=== PATIENT | female | born 1995 | race Caucasian/White ===

== ENCOUNTER 2023-03-27 08:44 | Outpatient (OUT) | payer BC, SELFPAY ==
[2023-03-27 12:37] LABS: SARS-CoV-2 Ag NEGATIVE (NEGATIVE)
[2023-03-27 12:38] LABS: Influenza Virus A Antigen Negative; Influenza Virus B Antigen Negative; Internal Control Within Normal Limits
[2023-03-28 15:04] LABS: SARS-CoV-2 NAA NOT DETECTED (NOT DETECTE)
== END 2023-03-27 08:45 | disposition home or self-care (01) ==
LOC: LAB 03-28 08:45
PROVIDERS: PCP Nurse Practitioner; Visit Provider Nurse Practitioner
DX: Z20.822 Contact with and (suspected) exposure to COVID-19 (principal); Z11.8 Encounter for screening for other infectious and parasitic diseases
CPT/HCPCS: 87635; 87804; 87811

== ENCOUNTER 2023-12-04 17:18 | Emergency (ER) | payer BC, SELFPAY ==
[2023-12-04 17:22] VITALS: BP 139/90; PULSE 90; TEMP 37.1; O2SAT 99; BMI 26.9
--- OUTSIDE RECORDS SUMMARY | 2023-12-04 17:44 | XMS_ITS | CCD ---
Author Organization [facility] Care Team Providers Care Biscuit Machine Operator Name Role Phone Aracely Slater Primary Care Provider THOR ROWAN Referring Unavailable ARACELY SLATER Primary Care Unavailable AICHHOLNeetu, TECHNICAL PROFESSIONAL ARACELY Admitting Unavailable AICHHOLZ, TECHNICAL PROFESSIONAL ARACELY Attending Unavailable AICHHOLZ, TECHNICAL PROFESSIONAL ARACELY Primary Care Unavailable AICHHOLZ, TECHNICAL PROFESSIONAL ARACELY Consulting Unavailable AICHHOLZ, TECHNICAL PROFESSIONAL ARACELY Admitting Unavailable AICHHOLZ, TECHNICAL PROFESSIONAL ARACELY Attending Unavailable AICHHOLZ, TECHNICAL PROFESSIONAL ARACELY Primary Care Unavailable AICHHOLZ, TECHNICAL PROFESSIONAL ARACELY Consulting Unavailable Unavailable Primary Care Provider Unavailabl e Allergies Allergy Classification Reported Allergen(s) Allergy Type Date of Onset Reaction(s) Facility Opioid Agonists (1 source) HYDROmorphone Drug Allergy 0 Nausea And Vomiting [facility] Medications Current Medications Medication Drug Class(es) Dates Sig (Normalized) Sig (Original) cetirizine hydrochloride 10 mg oral tablet (1 source) Histamine-1 Receptor Antagonist cetirizine (ZYRTEC) 10 MG tablet Take 10 mg by mouth as needed for Allergies 0 Active dextromethorphan hydrobromide 15 mg / guaiFENesin 400 mg / pseudoephedrine hydrochloride 60 mg oral tablet (1 source) alpha-Adrenergic Agonist, Uncompetitive G-iqepuu-Q-aspartat e Receptor Antagonist, Sigma-1 Agonist Start: 09-13-2023 take 4 tablets by mouth every twenty-four hours Pseudoephedrine-D m-Guaifenesin (Capmist Dm) 60-15-400 mg tablet Active 1 TAB PO EVERY 4-6 HOURS September 13, 2023 12:00am do not exceed 4 doses per 24 hrs gabapentin 300 mg oral capsule (1 source) Anti-epileptic Agent take 1 capsule by mouth once daily gabapentin (NEURONTIN) 300 MG capsule Take 300 mg by mouth nightly. 0 Active loratadine 10 mg oral tablet (1 source) take 1 tablet by mouth once daily loratadine (CLARITIN) 10 MG tablet Take 10 mg by mouth daily 0 Active tiZANidine 4 mg oral tablet (1 source) Central alpha-2 Adrenergic Agonist take 1 tablet by mouth every six hours as needed tiZANidine (ZANAFLEX) 4 MG tablet Take 4 mg by mouth every 6 hours as needed 0 Active valACYclovir 1000 mg oral tablet (1 source) Herpesvirus Nucleoside Analog DNA Polymerase Inhibitor, Herpes Simplex Virus Nucleoside Analog DNA Polymerase Inhibitor, Herpes Zoster Virus Nucleoside Analog DNA Polymerase Inhibitor Start: 06-13-2023 End: 06-14-2023 take 2 tablets by mouth in the morning valACYclovir (Valtrex) 1 g tablet Indications: Cold sore Take 2 tablets (2,000 mg) by mouth in the morning and 2 tablets (2,000 mg) before bedtime. Do all this for 1 day. 4 tablet 2 06/13/2023 06/14/2023 Active Completed/Discontinued Medications Medication Drug Class(es) Dates Sig (Normalized) Sig (Original) acetaZOLAMIDE 250 mg oral tablet (1 source) Carbonic Anhydrase Inhibitor Start: 12-22-2019 take 1 tablet by mouth twice daily acetaZOLAMIDE (DIAMOX) 250 mg tablet Take 1 tablet by mouth twice daily. 60 tablet 1 12/22/2019 Active Comment on above: Take 1 tablet by guillermo th twice daily. cephalexin 500 mg oral capsule (1 source) Cephalosporin Antibacterial take 1 capsule by mouth once daily cephALEXin (KEFLEX) 500 mg capsule Take 500 mg by mouth once daily. 0 Active Comment on above: Take 500 mg by mouth once daily. ketorolac tromethamine 10 mg oral tablet (1 source) Nonsteroidal Anti-inflammatory Drug, Cyclooxygenase Inhibitor take 1 tablet by mouth every eight hours as needed ketorolac (TORADOL) 10 mg tablet Take 10 mg by mouth every 8 hours as needed. 0 Active Comment on above: Take 10 mg by mouth every 8 hours as needed. ondansetron 4 mg disintegrating oral tablet (1 source) Serotonin-3 Receptor Antagonist take 1 tablet by mouth every eight hours as needed ondansetron orally disintegrating (ZOFRAN ODT) 4 mg disintegrating tablet Take 4 mg by mouth every 8 hours as needed. 0 Active Comment on above: Take 4 mg by mouth e very 8 hours as needed. 24 hr oxybutynin chloride 10 mg extended release oral tablet (1 source) Cholinergic Muscarinic Antagonist take 1 tablet by mouth once daily oxybutynin ER (DITROPAN XL) 10 mg 24 hr tablet Take 10 mg by mouth once daily. 0 Active Comment on above: Take 10 mg by mouth once daily. Problems Active Problems Problem Classification Problem Date Documented Da te Episodic/Chronic Other nervous system disorders (1 source) Benign intracranial hypertension; Translations: [Benign intracranial hypertension] Chronic Other nervous system disorders (2 sources) Chiari malformation type I; Translations: [Compression of brain] Chronic Other upper respiratory infections (1 source) Acute pharyngitis, unspecified; Translations: [Acute pharyngitis] 09-13-2023 Episodic Unclassified (3 sources) CONTACT W/AND (SUSP) EXPOS COVID-19; Translations: [CONTACT W/AND (SUSP) EXPOS COVID-19] Onset: 10-07-2021 Unclassified (1 source) Chiari malformation; Translations: [Chiari malformation] 09-13-2023 Viral infection (2 sources) Herpes labialis; Translations: [Herpesviral vesicular dermatitis] Onset: 06-13-2023 06-13-2023 Episodic Viral infection (1 source) COVID-19; Translations: [COVID-19] Onset: 04-15-2021 Past or Other Problems Problem Classification Problem Date Documented Da te Episodic/Chronic Unclassified (1 source) CONTACT W/AND (SUSP) EXPOS COVID-19; Translations: [CONTACT W/AND (SUSP) EXPOS COVID-19] Onset: 10-04-2021 Results Test Name Value Interpretation Reference Range Facility No Panel InformationOrdered By: Kelley Jane on 09-13-2023 Quick Strep (POC) [facility] Covid-19 PCR (CVDTBH)on SARS-CoV-2 (COVID-19) RNA [place]+probe Ql (Unsp spec) Not detected Normal NOT DETECTED [facility] Comment on above: Result Comment: This test is not yet approved or cleared by the [place] FDA. When there are no FDA-approved or cleared tests available, and other criteria are met, FDA can make tests available under an emergency access mechanism called an Emergency Use Authorization (EUA). The EUA for this test is supported by the [place] of Health and Human Service's (HHS's) declaration that circumstances exist to justify the emergency use of in vitro diagnostics for the detection and/or diagnosis of the virus that causes COVID-19. This EUA will remain in effect (meaning this test can be used) for the duration of the COVID-19 declaration justifying emergency of IVDs, unless it is terminated or revoked by FDA (after which the test may no longer be used). When diagnostic testing is negative, the possibility of a false negative should be considered in the context of a patient's recent exposures and the presence of clinical signs and symptoms consistent with SARS-CoV-2. Performed By: #### C VDTB #### [facility] [address] [place] [address] Dr. Price Gould Covid-19 PCR ([facility])on 03-29 SARS-CoV-2 (COVID-19) RNA WASHINGTON+probe Ql (Unsp spec) Detected Critically abnormal NOT DETECTED [facility] Comment on above: Result Comment: This test is not yet approved or cleared by the [place] FDA. When there are no FDA-approved or cleared tests available, and other criteria are met, FDA can make tests available under an emergency access mechanism called an Emergency Use Authorization (EUA). The EUA for this test is supported by the [place] of Health and Human Service's (HHS's) declaration that circumstances exist to justify the emergency use of in vitro diagnostics for the detection and/or diagnosis of the virus that causes COVID-19. This EUA will remain in effect (meaning this test can be used) for the duration of the COVID-19 declaration justifying emergency of IVDs, unless it is terminated or revoked by FDA (after which the test may no longer be used). Performed By: #### C VDTB #### [facility] [address] [place] [address] Dr. Price Gould MRI CSF FLOW STUDYon 021 MRI CSF FLOW STUDY EXAMINATION: MRI CSF flow study 12/07/2020 1:15 pm TECHNIQUE: Sagittal and axial T2 flow COMPARISON: None. HISTORY: ORDERING SYSTEM PROVIDED HISTORY: Chiari I malformation (HCC) TECHNOLOGIST PROVIDED HISTORY: evaluate flow; +chiari malformation Is the patient ?->No Reason for Exam: Pt c/o headaches, vertigo, ringing in ears, x 2 years, heaviness in back of head, mother with Chiari Acuity: Chronic Type of Exam: Ongoing FINDINGS: CSF flow images were obtained in the axial and sagittal planes. There is normal to and fro CSF flow through the foramen of magnum, both ventrally and dorsally. IMPRESSION: Normal CSF flow. Interpreted by: Jaime Pineda MD Signed by: Jaime Pineda MD 12/07/20 Final result Normal [facility] MRI CSF FLOW STUDYOrdered By : Thor Rowan on 12-07-[address] [facility] Work Phone: EXAMINATION: MRI CSF flow study 12/07/2020 1:15 pm TECHNIQUE: Sagittal and axial T2 flow COMPARISON: None. HISTORY: ORDERING SYSTEM PROVIDED HISTORY: Chiari I malformation ([facility]) TECHNOLOGIST PROVIDED HISTORY: evaluate flow; +chiari malformation Is the patient ?->No Reason for Exam: Pt c/o headaches, vertigo, ringing in ears, x 2 years, heaviness in back of head, mother with Chiari Acuity: Chronic Type of Exam: Ongoing FINDINGS: CSF flow images were obtained in the axial and sagittal planes. There is normal to and fro CSF flow through the foramen of magnum, both ventrally and dorsally. [employer] Work Phone: Earl, pn Incoming Radiant Results From [employer] - 12/07/2020 5:00 PM EDT EXAMINATION: MRI CSF flow study 12/07/2020 1:15 pm TECHNIQUE: Sagittal and axial T2 flow COMPARISON: None. HISTORY: ORDERING SYSTEM PROVIDED HISTORY: Chiari I malformation (HCC) TECHNOLOGIST PROVIDED HISTORY: evaluate flow; +chiari malformation Is the patient ?->No Reason for Exam: Pt c/o headaches, vertigo, ringing in ears, x 2 years, heaviness in back of head, mother with Chiari Acuity: Chronic Type of Exam: Ongoing FINDINGS: CSF flow images were obtained in the axial and sagittal planes. There is normal to and fro CSF flow through the foramen of magnum, both ventrally and dorsally. IMPRESSION: Normal CSF flow. [employer] Work Phone: [employer] Work Phone: Provider Letteron 06-23-2020 Provider Letter June 23, 2020 IVETTE LOPES [address] [id number] IVETTE LOPES 1995 Dear Ivette , We have been trying to reach you since June 06 with no success. You have an appointment with Dr. Patiño on July 15 @ 10:15am which will need to be rescheduled since he will be out of the office that day. Please contact the office at the number listed below to get this appointment rescheduled at your earliest convenience. Thank you for your prompt attention to this matter. Call [phone] and choose option 1. Sincerely, Dr Neel Patiño MD [facility] [address] [place] [address] [facility] [place] [place] [address] [facility] RAD - CT Reporton 02-01-2020 RAD - CT Report [id number] 0CD:127 [facility] Ambulatory Clinical Summaryo n 01-13-2020 Ambulatory Clinical Summary {[id number] [facility] Consent for Procedure/Surger yon 01-13-2020 Consent for Procedure/Surgery [id number] 0CD:127 [facility] Patient Educationon 01-13-20 20 Patient Education Cystoscopy Care After Refer to this sheet in the next few weeks. These instructions provide you with information on caring for yourself after your procedure. Your caregiver may also give you more specific instructions. Your treatment has been planned according to current medical practices, but problems sometimes occur. Call your caregiver if you have any problems or questions after your procedure. HOME CARE INSTRUCTIONS Things you can do to ease any discomfort after your procedure include: ? Drinking enough water and fluids to keep your urine clear or pale yellow. ? Taking a warm bath to relieve any burning feelings. SEEK IMMEDIATE MEDICAL CARE IF: ? You have an increase in blood in your urine. ? You notice blood clots in your urine. ? You have difficulty passing urine. ? You have the chills. ? You have abdominal pain. ? You have a fever or persistent symptoms for more than 2?3 days. ? You have a fever and your symptoms suddenly get worse. MAKE SURE YOU: ? Understand these instructions. ? Will watch your condition. ? Will get help right away if you are not doing well or get worse. Document Released: 11/02/2005 Document Revised: 01/07/2013 Document Reviewed: 10/06/2012 ExitCare? Patient Information ?2013 [employer]. [facility] Urology Office/Clinic Noteon 01-13-2020 Urology Office/Clinic Note Chief Complaint Patient is here for Cysto, right stent removal. HPI Staff Patient is here for Cysto, right stent removal. ABX started. Scope #1. History of Present Illness I have reviewed and verified the staff HPI to be accurate for this encounter. Review of Systems PHQ Score Initial Depression Screen Score: 0 Physical Exam Vitals & Measurements HR: 97(Peripheral) RR: 16 BP: 119/70 HT: 160 cm HT: 160.0 cm WT: 65.1 kg WT: 65.1 kg BMI: 25.43 Procedure Operative Information Anesthesia Type: Local Procedure: Local Cystoscopy with Stent Removal Complications: None Surgical risks, benefits, details of the procedure have been explained to the patient. Full informed consent has been obtained. Intraoperative Information Prepped: Patient is placed in modified dorso/lithotomy position. The patient was prepped with the Betadine solution. Anesthesia: 2% Xylocaine Jelly per urethra. Procedure: Cystoscopy and right stent removal. The flexible Cystoscope was passed in retrograde fashion into the bladder without difficulty. The bladder was viewed in entirety and found to be without tumors or stones. Mild inflammation was seen surrounding the orifice with the stent seen protruding from it. The stent was then grasped and removed in its entirety. Specimens Removed: None Postoperative Information The patient tolerated the procedure well and was subsequently discharged home. Assessment/Plan 1. Foreign body of bladder (T19.1XXA: Foreign body in bladder, initial encounter) Follow-up With When Contact Information Haroon Jolley MD, Neel Welsh In 6 months [address], [place] [address]- Additional Instructions: w/kub Patient Education Cystoscopy, Care After I, Mendez Bernal, personally scribed for Dr. Gonzales on 01/13/2020 08:29:21. . Documentation recorded by the scribe, Mendez Bernal, accurately reflects the services(s) I performed and decisions made by me. Authenticated by Dr. Gonzales on 01/13/2020 08:34:25. Problem List/Past Medical History Ongoing BMI 26.0-26.9,adult History of Chiari malformation Kidney stone Historical No qualifying data Procedure/Surgical History Cystoscopy (12/16/2019), Adenoidectomy, Lumbar puncture, Tonsillectomy. Medications Cipro, Oral, q12hr, Not taking Flomax 0.4 mg Cap, 0.4 mg= 1 cap(s), Oral, Daily, 1 refills, Not taking ketorolac 10 mg Tab, 10 mg= 1 tab(s), Oral, q4hr, PRN, Not taking Levsin 0.125 mg oral tablet, 0.125 mg= 1 tab(s), Oral, q6hr, 1 refills Percocet 5 mg-325 mg oral tablet, Oral, q6hr, Not taking Zofran 4 mg Tab, Oral, q8hr, Not taking Zyrtec-D, Oral, BID Allergies No Known Allergies Social History Alcohol - Denies Alcohol Use, 01/13/2020 Substance Abuse - Denies Substance Abuse, 01/13/2020 Tobacco - No Risk, 01/13/2020 Never (less than 100 in lifetime) Tobacco Use:. Never Smokeless Tobacco Use:., 12/11/2019 Family History Breast: Grandparent. Colon cancer: Grandparent. Hypertension: Sister. Migraine: Sister. Normal [facility] Comment on above: Result Comment: Elec tronically Signed By: EUGENE RAMESH, Frank Ortega\.br\Date and Time Signed: 01/13/20 08:34 EDT\.br\Electronically Co-Signed By: Mendez Bernal MA.dimple\Date and Time Co-Signed: 01/13/20 08:29 EDT Provider Letter FTon 01-10 Provider Letter [facility] January 11, 2020 IVETTE LOPES [address] [address] [place] IVETTE Prabhakar 1995 To Whom It May Concern, Please excuse above patient from work. Date of Illness: From: 01/11/2020 To: 01/13/2020 May Return to Work On: 01/14/2020 Restrictions: Patient may return to work 01/14/20 without restrictions. Comments: Patient is having surgical procedure done 01/13/20 Sincerely, Frank Gonzales M.D., F.A.C.S. [facility] ALLIED HEALTHon 01-07-2020 [facility] HNO ID: [id number] Author: Arthur Bell (Ct) Service: ? Author Type: Bat Person Type: [facility] Filed: 01/07/2020 2:29 PM Note Text: Radiology Service Progress Note PATIENT NAME: Ivette Lopes DATE OF SERVICE: January 07, 2020 TIME: 2:29 PM PATIENT IDENTITY VERIFICATION COMPLETED USING TWO (2) IDENTIFIERS: Name and Date of confirmed by patient verbally. FALL SCREENING: Has the patient had 2 falls in the last year or 1 fall with injury or currently using an Ambulatory Assistive Device (Walker, Cane, Wheelchair, Crutches, etc.)? No PATIENT GENDER DATA: Female. status: : No status: NO. PATIENT RELEVANT IMPLANT DATA REVIEWED: Not Applicable RADIOLOGY DEPARTMENT: CT; Exam(s) Completed: Temporal Bones PERIPHERAL IV DATA: Not applicable SIGNED BY: BIMAL Bell January 07, 2020 2:29 PM [facility] CT TEMP BONES WO IVCONon CT TEMP BONES WO IVCON * * *Final Report * * * DATE OF EXAM: Jan 07 2020 2:31PM [facility] 0512 - CT TEMP BONES WO IVCON / PROCEDURE REASON: rule out semicircular canal dehiscence * * * * Physician Interpretation * * * * EXAMINATION: CT TEMP BONES WO IVCON CLINICAL HISTORY: Concern for semicircular canal dehiscence. Disequilibrium. TECHNIQUE: Spiral 0.6 mm axial scans through the temporal bones contrast in high resolution bony algorithm. Coronal planar reconstructions provided. MQ: [id number] Dose-Length Product (DLP): 338 mGy*cm. CT Dose Reduction Employed: Automated exposure control (AEC) COMPARISON: None. RESULT: RIGHT: External Auditory Canal/Superficial Soft Tissues: EAC is patent. Overlying superficial soft tissues and the tissues of the visualized inferotemporal fossa are within normal limits. Mastoid Air Cells and Middle Ear Cavities: Mastoid air cells and middle ear cavities are clear. Ossicles: Ossicles are normally aligned and intact. Inner Ear Structures: There is dehiscence of the bony covering overlying the superior semicircular canal (series 7 image 160). Inner ear structures are within normal limits. No evidence of dysmorphism, bony destruction or dehiscence. Internal Auditory Canals: IAC is within normal limits of caliber and configuration. Skull Base: No evidence of bony destruction. LEFT: External Auditory Canal/Superficial Soft Tissues: EAC is patent. Overlying superficial soft tissues and the tissues of the visualized inferotemporal fossa are within normal limits. Mastoid Air Cells and Middle Ear Cavities: Mastoid air cells and middle ear cavities are clear. Ossicles: Ossicles are normally aligned and intact. Inner Ear Structures: There is marked thinning with probable dehiscence of the left superior semicircular canal (series 6 image 57). Inner ear structures are otherwise within normal limits. No evidence of dysmorphism, bony destruction or dehiscence. Internal Auditory Canals: IAC is within normal limits of caliber and configuration. Skull Base: No evidence of bony destruction. Physiotherapy Aide (topogram) images: No additional findings. There are small mucous retention cysts in the right maxillary antrum. 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 Otherwise normal appearance of the temporal bones. Mud Analysis Operator: PSCB Transcribe Date/Time: Jan 07 2020 2:34P Dictated by : CHRISTIANO CASTILLO DO This examination was interpreted and the report reviewed and electronically signed by: CHRISTIANO CASTILLO DO on Jan 07 2020 2:44PM EST [id number] Normal [facility] Basic Metabolic Panlon 01-03 Anion gap [Moles/Vol] 11 mmol/L Normal 9-18 [facility] Comment on above: Performed By: #### B MP ####[place] [phone] Calcium [Mass/Vol] 8.7 mg/dL Normal 8.5-10.5 [facility] Comment on above: Performed By: #### B MP ####[place] [phone] Chloride [Moles/Vol] 110 mmol/L Normal 98-110 [facility] Comment on above: Performed By: #### B MP ####[place] [phone] CO2 [Moles/Vol] 17 mmol/L Low 23-32 [facility] Comment on above: Performed By: #### B MP ####[place] [phone] Creatinine [Mass/Vol] 0.63 mg/dL Low 0.70-1.40 [facility] Comment on above: Performed By: #### B MP ####[place] [phone] eGFR- Amer. >60 Normal >60 [facility] Comment on above: Performed By: #### B MP ####[place] [phone] GFR/1.73 sq M predicted among non-blacks MDRD (S/P/Bld) [Vol rate/Area] mL/min/{1.73_m2} Normal >60 [facility] Comment on above: Performed By: #### B MP ####[place] [phone] Glucose [Mass/Vol] 98 mg/dL Normal 65-100 [facility] Comment on above: Performed By: #### B MP ####[place] [phone] Potassium [Moles/Vol] 3.8 mmol/L Normal 3.5-5.0 [facility] Comment on above: Performed By: #### B MP ####[facility] [place], [place] [phone] Sodium [Moles/Vol] 138 mmol/L Normal 132-148 [facility] Comment on above: Performed By: #### B MP ####[facility] [place], [place] [phone] Urea nitrogen [Mass/Vol] 12 mg/dL Normal 8-25 [facility] Comment on above: Performed By: #### B MP ####[facility] [place], [place] [phone] NURSING PROGon 01-04-2020 NURSING PROG HNO ID: [id number] Author: Rachael RoblesRn) JACQUELIN Harding Service: Nursing Author Type: Registered Nurse Type: Nursing Progress Note Filed: 01/04/2020 11:26 AM Note Text: Nursing Progress Note Patient Name: Ivette Lopes Patient Location: [place] [address] __ Daily Note: Patient resting in bed. Rates frontal and occipital H/A a 6/10 along with nausea. Medicated with both Fioricet and Dramamine. Also stated back spasms that feel shocking and painful. Lung sounds are clear on room air. cardiac monitor technician pattern S/B HR 53. Poor appetite with meals. IVF infusing at 100 ml/hr. Her father is at bedside. S/R up x 2 call light with in reach. Will continue to assess. This note was completed by: Rachael Harding RN [facility] NURSING PROG HNO ID: [id number] Author: Vijaya RoblesRn) JACQUELIN [place] Service: ? Author Type: Registered Nurse Type: Nursing Progress Note Filed: 01/04/2020 1:37 AM Note Text: Nursing Progress Note Patient Name: Ivette Lopes Patient Location: [id number] __ Daily Note:2100 Patient assessed ao-3 follows command c/o head ache and dizziness prn meds given. This note was completed by: Vijaya [place] Rn [facility] CASE MANAGEMon 01-03-2020 CASE MANAGEM HNO ID: [id number] Author: Gladys Cutler (Sw) Service: Care Management Author Type: Telephone Ad Taker Type: Care Mgt Progress Note Filed: 01/03/2020 6:28 PM Note Text: CARE MANAGEMENT PROGRESS NOTE SERVICE DATE: 01/03/2020 SERVICE TIME: 12:37 PM LOS: 2 days Needs Prior to Discharge: To Be Determined Pt continues to have symptoms, though somewhat improved. Plan is to follow up with neurosurgery/Dr. Coronel for repeat MRI in February, as well as for headaches. IRVING/ODETTE to continue to follow. SIGNATURE: ANAHI GAGE PATIENT NAME: Ivette Lopes DATE: January 03, 2020 TIME: 12:37 PM PAGER/CONTACT #: [phone] [facility] CONSULTon 01-03-2020 CONSULT HNO ID: [id number] Author: Lizett Park Service: Neurology General Author Type: Physician Type: Consults Filed: 01/11/2020 1:04 PM Note Text: INITIAL CONSULT - GENERAL NEUROLOGY SERVICE DATE: 01/03/2020 SERVICE TIME: 12:40 PM Current Attending Provider: Krystyna Caldwell Reason for Evaluation: Headaches Subjective HPI: Ms. Ivette Lopes is a 24 year old left handed female with no significant past medical history. History gathered from patient. She reports that she started having headaches for the past year that is getting worse in the past 6 months. These are usually located in the frontal/occipital areas, described as constant pressure to throbbing in character, accompanied by nausea/vomiting/blurre d vision/loss of balance occurring almost daily. She was seeing a neurologist/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ER at [place]. Had CT brain which initially showed some abnormality which led to the MRI which showed a Chiari I malformation hence referred to neurosurgery. She established with neurosurgery on 12/22/2019. Has had multiple evaluations ruling out IIH (ophthalmology evaluation), trial of Diamox. She had lumbar puncture done on 12/28/2019 at [facility]. Since 12/29/2019, noted pressure headache getting worse with accompanying nausea and vomiting. She went to [facility] but was transferred to [place] because of the need for a blood patch. She had a blood patch (20 cc) done on 12/30/2019. She reports that she was significantly better after the blood patch but had to lay flat for an MRI of the C and the T-spine and made her headache recur. She was followed up by the neurosurgery team on 12/31/2019, recommended a second blood patch which she received on 01/01/2020. She reports this blood patch did not help instead triggered more issues, she reportedly had a lot of pain during the procedure, almost blacked out and was not able to feel her legs. Leg sensation have returned but reports to have tingling whenever she moves her leg; also has a lot of pressure sensation in the head - ' feels it will explode', also has pressure in her ears with accompanying nausea vomiting and dizziness. She has tried multiple medications this admission including acetaminophen, Zofran, Decadron, ketorolac, magnesium with minimal benefit. Current Facility-Administered Medications Medication Dose Route Frequency - acetaZOLAMIDE 250 mg tab(s) (DIAMOX) 250 mg ORAL BID - sodium chloride 0.9 % (flush) 3-5 mL (BD POSIFLUSH) 3-5 mL INTRAVENOUS q 12 H - sodium chloride 0.9 % (flush) 2-10 mL (BD POSIFLUSH) 2-10 mL INTRAVENOUS q 12 H - ondansetron 4 mg tab(s) (ZOFRAN) 4 mg ORAL q 6 H PRN Or - ondansetron (PF) 4 mg injection (ZOFRAN) 4 mg INTRAVENOUS q 6 H PRN - acetaminophen 650 mg tab(s) (TYLENOL) 650 mg ORAL q 6 H PRN - acetaminophen 325 mg-caffeine 40 mg-butalbital 50 mg 1 tablet (FIORICET) 1 tablet ORAL q 6 H PRN - dimenhyDRINATE 50 mg tab(s) (DRAMAMINE) 50 mg ORAL q 6 H PRN No past medical history on file. No past surgical history on file. Social History Tobacco Use - Smoking status: Never Smoker - Smokeless tobacco: Never Used Substance Use Topics - Alcohol use: Never Frequency: Never - Drug use: Not on file Comment: not asked FAMILY HISTORY Problem Relation Age of Onset - No Ocular Disease No Family History ALLERGIES Allergen Reactions - Dilaudid [Hydromorp* Intolerance Pt had Nausea /Vomitinglasted 2 days REVIEW OF SYSTEMS: General: no wt. loss/gain, change in appetite, fever, malaise HEENT: no headache, problems with vision, hearing Cardiac: no chest pain, palpitation Respiratory: no shortness of breath, cough, cold GI: no change in bowel habits, abdominal pain : no incontinence, frequency, urgency Musculoskeletal: no joint/muscle pain, no swelling Skin: no rash Endocrine: no cold/hot intolerance, thyroid, diabetes Immunologic: no known immunologic disorders Neurologic/Psychiatric : no other known neurologic or psychiatric problems NEURO: See HPI Objective PHYSICAL EXAM: HEENT: atraumatic, normocephalic Neck: supple, no bruit Heart: (+)S1S2, regular rate and rhythm Extremities: good pulses Neurological: NEUROLOGICAL EXAM: MSE: Awake, alert, oriented x 3, language intact, attention and concentration normal CN: EOMI, no nystagmus, V1-V3 intact, no facial weakness, normal hearing to communication, good elevation of soft palate, tongue midline with good strength, no dysarthria Motor: Gait: Deferred No pronator drift, rapid finger movements are symmetrical Normal tone and bulk No adventitious movements Power: Right Left Neck flexion 5/5 Neck extension 5/5 Trapezius 5/5 5/5 Deltoids 5/5 5/5 Biceps 5/5 5/5 Triceps 5/5 5/5 Finger Flex 5/5 5/5 Hip Flexors 5/5 5/5 Knee Extensors 5/5 5/5 Knee Flexors 5/5 5/5 Ankle DF 5/5 5/5 Ankle PF 5/5 5/5 Toe Flexion 5/5 5/5 Toe Extension 5/5 5/5 Coordination: intact finger to nose and heel to wade Reflexes: B T Br K A Plantars R 2+ 2+ 2+ 2+ 2+ down L 2+ 2+ 2+ 2+ 2+ down Sensory: intact to light touch, no extinction Romberg's deferred LABS/DATA: WBC (k/uL) Date Value 01/02/2020 11.56 12/30/2019 11.25 12/28/2019 8.34 RBC (m/uL) Date Value 01/02/2020 5.06 12/30/2019 4.50 12/28/2019 4.83 Platelet Count (k/uL) Date Value 01/02/2020 287 12/30/2019 231 12/28/2019 262 BUN (mg/dL) Date Value 12/30/2019 5 12/28/2019 10 Creatinine (mg/dL) Date Value 12/30/2019 0.74 12/28/2019 0.87 Lab Results Component Value Date NEUTP 93.1 01/02/2020 ABSNEUT 10.76 01/02/2020 LYMPHP 5.7 01/02/2020 ABSLYMPH 0.66 01/02/2020 ABSMONO 0.13 01/02/2020 EODINP 0.0 01/02/2020 ABSEOSIN <0.03 01/02/2020 BASOP 0.1 01/02/2020 ABSBASO <0.03 01/02/2020 Lab Results Component Value Date PLT 287 01/02/2020 HB 15.0 01/02/2020 HCT 43.1 01/02/2020 CA 8.8 12/30/2019 GLUC 127 12/30/2019 BUN 5 12/30/2019 NA 136 12/30/2019 K 3.6 12/30/2019 CHLOR 109 12/30/2019 CO2 18 12/30/2019 ANION 9 12/30/2019 No results found for: WSR, CRP, IGG No results found for: USCRP No results found for: CHOL No results found for: LDL No results found for: HDL No results found for: TG No results found for: HBA1C RECENT MICROBIOLOGY: Blood Cultures: Urine Cultures/UA: DATA: Diagnostic tests reviewed for today's visit: MRI cervical and thoracic spine -12/30/2019 Normal morphology and signal intensity of the visualized spinal cord. ? Negative for syrinx involving cervical and thoracic spine. ?CSF flow study as discussed. Mild degenerative changes of the cervical spine as discussed. ?No significant spinal canal or significant foraminal stenosis throughout the cervical and lumbar spine. MRI brain -12/24/2019 1. ?Hypoplastic left transverse and sigmoid sinus, likely incidental normal variant. 2. ?Otherwise, no focal significant stenosis or filling defect within visualized venous sinuses. 3. ?Chiari I malformation changes. Impression/Recommendat ions Miss Lopes is a 24 year old female with h/o Chiari I malformation; consulted for post LP headache. Examination reveals an awake, alert patient with no definite focal weakness or sensory loss. She continues to have head pressure. She had blood patch on 12/30/2019 and 01/01/2020. -Conservative measures including laying flat, increasing hydration discussed with her -Consider putting her back on IV fluids; trial of IV caffeine - spoke with pharmacy and his is not in the formulary -If no benefit, may try headache cocktail -Zofran 8 mg IVP -Decadron 8 mg IVP -Depacon 1 g IVPB -Magnesium 2 g IVPB -Toradol 30 mg IVP SIGNATURE: Lizett Park MD PATIENT NAME: Ivette Lopes DATE: January 03, 2020 TIME: 12:40 PM PAGER/CONTACT #: [phone] [facility] NURSING PROGon 01-03-2020 NURSING PROG HNO ID: [id number] Author: Lizett (Rn) JACQUELIN Murdock Service: ? Author Type: Registered Nurse Type: Nursing Progress Note Filed: 01/03/2020 7:02 PM Note Text: Nursing Progress Note Patient Name: Ivette Lopes Patient Location: [place] [address] [facility]- __ Daily Note:AANDOX3. Nsg assessment completed see npr flowsheet. c/o frontal into occipital amaya throbbing in nature 10/06 reports occurred after raising HOB to eat breakfast. reports tingling to ble has resolved but back pain continues /10 sharp needles into back feeling. [place] 5/ x4. no visual changes. medicated with prn tylenol for amaya, refused fioricet stating not effective. plan of care discussed and in agreement. requesting to shower will notify Dr Ray on rounds. call light within reach. 1045 requesting for ears to be examined d/t feels possible ear infection r/t to dizziness, amaya, nausea and recent rt ear pain. Dr Ray notified will be in to see. 1340 Dr Park in to see. 1415 Dr Ray in to see and examine ears. 1800 called to room father at bedside requesting to speak to MD pt c/o increasing dizziness, reports amaya remains 10/06, ringing in ears and pressure change in ears Dr Ray notified and will be in to see. This note was completed by: Lizett Murdock RN [facility] NURSING PROG HNO ID: [id number] Author: Vijaya (Rn) JACQUELIN [place] Service: ? Author Type: Registered Nurse Type: Nursing Progress Note Filed: 01/03/2020 12:50 AM Note Text: Nursing Progress Note Patient Name: Ivette Lopes Patient Location: [id number]/[address] [facility] __ Daily Note:2100 Patient assessed ao-3 follows commands c/o head ache prn pain med given will continue to monitor. This note was completed by: Vijaya Madera Rn [facility] PROGRESSon 01-03-2020 PROGRESS HNO ID: [id number] Author: Nuvia Ray MD Service: General Internal Medicine Author Type: Physician Type: Progress Notes Filed: 01/03/2020 4:47 PM Note Text: Continued to report headache and dizziness which has been impacting her mobility. Seen by neurology, headache cocktail was initiated IV fluids was resume. Concerned if dizziness is also related to inner ear problem. Most of the symptoms appears central however they have been no improvement for the last 48 hours. Will follow recommendation for neurology I will hold Diamox for now and continue hydration Consult ENT Assessment: Post LP headache Dizziness Plan as above [facility] CBC and Differentialon 01-01 Abs Baso <0.03 Normal <0.11 [facility] Comment on above: Performed By: #### C BCDIF ####[place] [phone] Abs [place] 0.13 k/uL Normal <0.87 [facility] Comment on above: Performed By: #### C BCDIF ####[place] [phone] Abs Neut 10.76 k/uL High 1.45-7.50 [facility] Comment on above: Performed By: #### C BCDIF ####[place] [phone] Absolute nRBC <0.01 Normal <0.01 [facility] Comment on above: Performed By: #### C BCDIF ####[place] [phone] Basophils/100 WBC (Bld) 0.1 % Normal [facility] Comment on above: Performed By: #### C BCDIF ####[place] [phone] DTYPE Auto Diff Normal [facility] Comment on above: Performed By: #### C BCDIF ####[place] [phone] Eosinophils (Bld) [#/Vol] 10*3/uL Normal <0.46 [facility] Comment on above: Performed By: #### C BCDIF ####[place] [phone] Eosinophils/100 WBC (Bld) 0.0 % Normal [facility] Comment on above: Performed By: #### C BCDIF ####[place] [phone] Erythrocyte distribution width (RBC) [Ratio] 11.9 % Normal 11.5-15.0 [facility] Comment on above: Performed By: #### C BCDIF ####[place] [phone] Hematocrit (Bld) [Volume fraction] 43.1 % Normal 36.0-46.0 [facility] Comment on above: Performed By: #### C BCDIF ####[place] [phone] Hemoglobin (Bld) [Mass/Vol] 15.0 g/dL Normal 11.5-15.5 [facility] Comment on above: Performed By: #### C BCDIF ####[place] [phone] Lymphocytes (Bld) [#/Vol] 0.66 10*3/uL Low 1.00-4.00 [facility] Comment on above: Performed By: #### C BCDIF ####[place] [phone] Lymphocytes/100 WBC (Bld) 5.7 % Normal [facility] Comment on above: Performed By: #### C BCDIF ####[place] [phone] MCH (RBC) [Entitic mass] 29.6 pG Normal 26.0-34.0 [facility] Comment on above: Performed By: #### C BCDIF ####[place] [phone] MCHC (RBC) [Mass/Vol] 34.8 g/dL Normal 30.5-36.0 [facility] Comment on above: Performed By: #### C BCDIF ####[place] [phone] MCV (RBC) [Entitic vol] 85.2 fL Normal 80.0-100.0 [facility] Comment on above: Performed By: #### C BCDIF ####[place] [phone] Monocytes/100 WBC (Bld) 1.1 % Normal [facility] Comment on above: Performed By: #### C BCDIF ####[address] [phone] Neutrophils/100 WBC (Bld) 93.1 % Normal [facility] Comment on above: Performed By: #### C BCDIF ####[address] [phone] NRBCs 0.0 /100 WBC Normal 0 [facility] Comment on above: Performed By: #### C BCDIF ####[address] [phone] Platelet mean volume (Bld) [Entitic vol] 11.0 fL Normal 9.0-12.7 [facility] Comment on above: Performed By: #### C BCDIF ####[address] [phone] Platelets (Bld) [#/Vol] 287 10*3/uL Normal 150-400 [facility] Comment on above: Performed By: #### C BCDIF ####[address] [phone] RBC (Bld) [#/Vol] 5.06 10*6/uL Normal 3.90-5.20 [facility] Comment on above: Performed By: #### C BCDIF ####[address] [phone] WBC (Bld) [#/Vol] 11.56 10*3/uL High 3.70-11.00 [facility] Comment on above: Performed By: #### C BCDIF ####[address] [phone] Hemoglobin A1con 01-02-2020 HbA1c (Bld) [Mass fraction] 5.1 % Normal 4.3-5.6 [facility] Comment on above: Result Comment: Amer [place] Diabetes Association guidelines indicate that patients with HgbA1c in the range 5.7-6.4% are at increased risk for development of diabetes, and intervention by lifestyle modification may be beneficial. HgbA1c greater or equal to 6.5% is considered diagnostic of diabetes. Performed By: #### H BA1C ####[facility] [place], [place] [phone] HbA1c (Bld) [Mass fraction] 100 mg/dL [facility] Comment on above: Result Comment: eAG: (Estimated average glucose) is a calculated value from HgbA1c and is access service representative of the average blood glucose level in the last 2-3 month period. Performed By: #### H BA1C ####[facility] [place], [place] [phone] NURSING PROGon 01-02-2020 NURSING PROG HNO ID: [id number] Author: Lizett RoblesRn) JACQUELIN Murdock Service: ? Author Type: Registered Nurse Type: Nursing Progress Note Filed: 01/02/2020 6:27 PM Note Text: Nursing Progress Note Patient Name: Ivette Lopes Patient Location: [id number] [facility] __ Daily Note:0815 AANDOX3. Nsg assessment completed see NPR flowsheet. c/o amaya frontal into occiptal area 5/10 aching , c/o mid/low back pain 7/10 describes as sharp, stabbing non radiating, c/o ble tingling. strength 5/5. plan of care discussed and in agreement. call light within reach. 1750 requesting HbgA1 test concerned re glucose levels on blood work, nausea, increased thirst and urination. Dr Ray notified new order for HgbA1c entered into [employer]. This note was completed by: Lizett Murdock, JACQUELIN [facility] NURSING PROG HNO ID: [id number] Author: Nancy RoblesRn) JACQUELIN Eric Service: ? Author Type: Registered Nurse Type: Nursing Progress Note Filed: 01/02/2020 4:46 AM Note Text: Nursing Progress Note Patient Name: Ivette Lopes Patient Location: [id number] __ Daily Note: 2000 pt returned to ROU tearful complaining of nausea at this time. Zofran given to pt. Pt also complaining of continues AMAYA- cold compress applied to pt forehead at this time. Pt stating she almost fainted while receiving blood patch and is not planning to have an MRI tomorrow as she believes it will make her symptoms worse. Pt father called and stated they were angry with the care she has received and plan to come to the hospital to get answers and cause trouble despite known restrictions. 0000 Pt resting and appears comfortable at this time. IV decadron given to pt at this time. 0500 Pt continues to be in stable condition. Pt has no needs at this time. This note was completed by: Nancy Eric RN [facility] PROGRESSon 01-02-2020 PROGRESS HNO ID: [id number] Author: Nuvia Ray MD Service: General Internal Medicine Author Type: Physician Type: Progress Notes Filed: 01/02/2020 1:45 PM Note Text: patient describes her headaches about 6 out of 10. She is having shooting pain towards her lower extremities periodically While her symptoms not as bad as yesterday however she is still concerned about into symptoms She feel worse when she sit up Discussed with patient and her father at bedside, with some improvement compared to yesterday and her concern about any any further testing such as MRI at this time since her symptoms has worsened after the last MRI, she is agreeable to lay flat as much as possible today observe his symptoms continue to improve. Further imaging will be considered for any event flat noticed Assessment: Post LP headache Paresthesia Plan as above Yasmin ray [facility] PROGRESS HNO ID: [id number] Author: Duncan Combs (Pa) Service: Neurosurgery Author Type: Physician Belly Roller Type: Progress Notes Filed: 01/03/2020 8:42 AM Note Text: PROGRESS NOTE NEUROSURGERY SERVICE DATE: 01/02/2020 SERVICE TIME: 1300 Subjective INTERVAL HPI Patient with some improvement of AMAYA compared to 12/31. Sitting up in bed eating lunch. Complains of some numbness and tingling in the bilateral legs. She is able to ambulate. No loss of bowel or bladder function. Current Facility-Administered Medications Medication Dose Route Frequency - acetaZOLAMIDE 250 mg tab(s) (DIAMOX) 250 mg ORAL BID - sodium chloride 0.9 % (flush) 3-5 mL (BD POSIFLUSH) 3-5 mL INTRAVENOUS q 12 H - sodium chloride 0.9 % (flush) 2-10 mL (BD POSIFLUSH) 2-10 mL INTRAVENOUS q 12 H - ondansetron 4 mg tab(s) (ZOFRAN) 4 mg ORAL q 6 H PRN Or - ondansetron (PF) 4 mg injection (ZOFRAN) 4 mg INTRAVENOUS q 6 H PRN - acetaminophen 650 mg tab(s) (TYLENOL) 650 mg ORAL q 6 H PRN - acetaminophen 325 mg-caffeine 40 mg-butalbital 50 mg 1 tablet (FIORICET) 1 tablet ORAL q 6 H PRN Objective Alert, Oriented to Person, Place, Time EOMI PERRL Face Symmetric Tongue Midline TITO No Drift VITAL SIGNS 24 HOUR REVIEW: Patient Vitals for the past 24 hrs: BP Temp Temp src Pulse Resp SpO2 01/03/20 0801 114/56 37 ?C (98.6 ?F) Oral 72 18 98 % 01/03/20 0450 110/61 36.6 ?C (97.8 ?F) Oral 65 18 98 % 01/03/20 0008 113/57 36.8 ?C (98.2 ?F) Oral 75 18 97 % 01/02/20 1920 112/68 36.8 ?C (98.3 ?F) Oral 91 18 100 % 01/02/20 1554 110/64 36.9 ?C (98.4 ?F) Oral 93 18 98 % 01/02/20 1200 118/68 36.9 ?C (98.5 ?F) Oral 91 16 99 % LABS: CBC, Coags, BMP, Mg, Phos Recent Labs 01/02/20 0549 12/31/19 2354 WBC 11.56* -- HB 15.0 -- HCT 43.1 -- PLT 287 -- MG -- 2.1 DATA: Diagnostic tests reviewed for today's visit: Most recent labs and imaging results. Assessment/Plan Principal Problem: Headache after spinal puncture POA: Yes Assessment AND Plan: Continue conservative care, lay flat, caffeine. No further imaging needed at this time. Outpatient follow up with Dr Coronel Active Problems: History of Chiari malformation POA: Yes Assessment AND Plan: as above Leukocytosis POA: Yes Assessment AND Plan: per primary Status post placement of ureteral stent POA: Yes Assessment AND Plan: per primary Resolved Problems: * No resolved hospital problems. * Medication and Non-Pharmacologic VTE Prophylaxis/Anticoagul ants 01/01/20 1245 activity - mobilize patient ([place], [place]) 12/30/19 0315 pneumatic compression stockings ([place], [place]) VTE Prophylaxis: VTE prophylaxis appropriate SIGNATURE: LUIS ENRIQUE Bucio PATIENT NAME: Ivette Lopes DATE: January 03, 2020 TIME: 8:41 AM PAGER/CONTACT #: [phone] Normal [facility] Urine Cultureon 01-02-2020 Bacteria identified Cx Nom (U) Sp. Request/Comment: - Specimen received in preservative Culture Result - 10,000 - <50,000 CFU/ml Normal urogenital damion [facility] Comment on above: Performed By: #### U RCUL ####[facility] [place], [place] [phone] Hospitals [facility]wood [facility] Center[address] [place], [place] [phone] CONSULTon 01-01-2020 CONSULT HNO ID: [id number] Author: Myriam Greenfield ([place]) Service: Neurosurgery Author Type: Physician Belly Roller Type: Consults Filed: 01/01/2020 2:05 PM Note Text: Attestation signed by Tj Quinones at 01/01/2020 6:16 PM will try additional blood patch Tj Quinones MD NEUROSURGERY INPATIENT CONSULT SERVICE DATE: 01/01/2020 SERVICE TIME: 1400 PCP: Aracely Slater, TECHNICAL PROFESSIONAL Consultation requested by Edgar Patiño MD [address] [place] [address] for an opinion regarding the evaluation and treatment of headache. My final impression and recommendations will be communicated back to the requesting physician by way of the shared medical record or letter via [place] mail. SUBJECTIVE Ivette Lopes is a 24 year old female presenting with significant other CHIEF COMPLAINT:headache HISTORY OF PRESENT ILLNESS PRECIPITATING EVENT: LP Headache for years. After recent LP she developed low pressure AMAYA Was transferred here from OSH for blood patch Initially improved after blood patch Then after MRI AMAYA returned Throbbing over occipital and frontal lobes constantly now She feels like she is going to pass out when she stands up Caffeine occasionally helps her headaches, but has not tried it this admission Denies numbness/tingling No diplopia or blurred vision PAIN EVALUATION 12/30/2019 0424 12/30/2019 0900 12/30/2019 1136 12/31/2019 0558 12/31/2019 0806 Pain Level: 10 5 6 6 3 Pain Location: Head Back-Upper Back-Upper Head Head Description: Aching Pressure Pressure Throbbing Throbbing Intervention: Medication;Reposition; Relaxation Reposition;Relaxation Medication Medication;Reposition; Relaxation Cold 12/31/2019 1007 12/31/2019 1045 12/31/2019 1442 12/31/2019 2357 01/01/2020 0004 Pain Level: 5 4 7 7 6 Pain Location: Head Head Head Head Head Description: Aching Aching Aching Throbbing Throbbing Intervention: Medication Cold Medication Medication Medication 01/01/2020 0855 Pain Level: 5 Pain Location: Head Description: Aching Intervention: Medication;Reposition; Relaxation;Education AMBULATORY STATUS: Independent Community Distances ANTIPLATELET OR ANTICOAGULATION STATUS: No PREVIOUS CONSERVATIVE TREATMENTS: Analgesics ACTIVE PROBLEM LIST Headache After Spinal Puncture History of Chiari Malformation Leukocytosis Status Post Placement of Ureteral Stent Kidney Stone No past medical history on file. No past surgical history on file. FAMILY HISTORY Problem Relation Age of Onset - No Ocular Disease No Family History Social History Tobacco Use - Smoking status: Never Smoker - Smokeless tobacco: Never Used Substance Use Topics - Alcohol use: Never Frequency: Never - Drug use: Not on file Comment: not asked ALLERGIES Allergen Reactions - Dilaudid [Hydromorp* Intolerance Pt had Nausea /Vomitinglasted 2 days MEDICATIONS: ondansetron orally disintegrating (ZOFRAN ODT) 4 mg disintegrating tablet Take 4 mg by mouth every 8 hours as needed. cephALEXin (KEFLEX) 500 mg capsule Take 500 mg by mouth once daily. acetaZOLAMIDE (DIAMOX) 250 mg tablet Take 1 tablet by mouth twice daily. oxybutynin ER (DITROPAN XL) 10 mg 24 hr tablet Take 10 mg by mouth once daily. ketorolac (TORADOL) 10 mg tablet Take 10 mg by mouth every 8 hours as needed. REVIEW OF SYSTEMS: PAIN ASSESSMENT: See HPI. GENERAL: Denies fever, chills malaise and weight loss. HEENT: No recent change in vision or hearing. CARDIOVASCULAR: Denies chest pain, history of A-fib, valvular disease, or pacemaker/ICD. RESPIRATORY: Denies SOB, sputum production, and hemoptysis. GI: Denies GI ulcers, inflammatory disease, or liver disease. : Denies change in frequency or urgency, kidney disease, and burning with urination. MUSCULOSKELETAL: Negative for joint pain or swelling, back pain or muscle pain. SKIN: Denies rash or itching. PSYCHOLOGICAL: Not reviewed NEURO: Headaches ENDOCRINE: Denies diabetes, thyroid disease. HEMATOLOGY/LYMPHOLOGY: Denies cancer, bleeding or clotting disorders, anemia,and DVT's. ALLERGIC/IMMUNOLOGICAL : Denies risks for infection, or recent MRSA infections. OBJECTIVE: PHYSICAL EXAM BP 117/63 Pulse 87 Temp 37 ?C (98.6 ?F) (Oral) Resp 16 Ht 160 cm (5' 3 ) Wt 63.1 kg (139 lb 3.2 oz) SpO2 99% BMI 24.66 kg/m? GENERAL APPEARANCE: Well nourished, well developed, and no apparent distress. NEURO PSYCH: Patient oriented to person, place, and time. Mood pleasant. Benign affect. MUSCULOSKELETAL VISUAL INSPECTION CERVICAL: WNL THORACIC: WNL LUMBAR: WNL MOTOR: 5/5 in all muscle groups. SENSORY: Normal sensory exam No swelling over lumbar spine NEURO TESTS: Cranial Nerves: Normal mood and affect. CNII-XII grossly intact. No dysmetria DATA REVIEW [facility] records reviewed Imaging and outside records reviewed Images reviewed with the patient ASSESSMENT/PLAN IMPRESSION: Ivette Lopes is a 24 year old female who presented due to low pressure headaches following LP for blood patch. She has been seeing Dr. Coronel for tonsillar decent. Her workup has been negative for IIH. Her cervical cine flow demonstrated good flow anteriorly and posteriorly. Patient's father requested neurosurgery see her during admission. Will discuss possibility of second blood patch with anesthesia, if they are in agreement would recommend repeat blood patch Recommend resting/taking it easy for the next 2 weeks Lie flat with feet up to improve headaches Increase fluids Follow up with headache neurology for headache management; consult has been sent per LUIS ENRIQUE Lees Follow up with Dr. Coronel in 6 m with repeat MRI (03/03/20) This has been communicated to patient's father by Dr. Coronel over phone. We will sign off. SIGNATURE: Myriam Greenfield PA-C PATIENT NAME: Ivette Lopes DATE: January 01, 2020 TIME: 1:31 PM PAGER: Normal [facility] Magnesiumon 01-01-2020 Magnesium [Mass/Vol] 2.1 mg/dL Normal 1.7-2.6 [facility] Comment on above: Performed By: #### M G1 ####[facility] [place], [place] [phone] NURSING PROGon 01-01-2020 NURSING PROG HNO ID: [id number] Author: Duncan (Rn) JACQUELIN Martinez Service: Nursing Author Type: Registered Nurse Type: Nursing Progress Note Filed: 01/01/2020 6:44 PM Note Text: Nursing Progress Note Patient Name: Ivette Lopes [id number] __ Daily Note:Dr. Quinones in to see patient, stated to patient he would write for steroids and follow up with her over the weekend. Vss, safety maintained, will continue to monitor. This note was completed by: Duncan Martinez RN [facility] NURSING PROG HNO ID: [id number] Author: Desean RoblesRn) JACQUELIN Seymour Service: ? Author Type: Registered Nurse Type: Nursing Progress Note Filed: 01/01/2020 2:12 PM Note Text: Nursing Progress Note Patient Name: Ivette Lopes Patient Location: [id number]/ __ Daily Note: 0845-Pt assessment complete. Pt AANDOX3. Pt denies CP,SOB,NANDV,numbness, tingling, or dizziness. Pt states she continues to have a constant headache. Pt requests to be given her MRI results. My safety plan discussed, pt verbalizes understanding. Pt updated on POC. Call light in reach. Continuous telemetry applied. 1400-This RN spoke with Dr. Gardiner, discussed POC. 1408-Dr. Quinones at bedside. This note was completed by: Desean Seymour RN [facility] NURSING PROG HNO ID: [id number] Author: Nakia Martínez (Rn) Contreras, RN Service: Nursing Author Type: Registered Nurse Type: Nursing Progress Note Filed: 01/01/2020 12:09 AM Note Text: Nursing Progress Note Patient Name: Ivette Lopes Patient Location: [id number]/ __ Daily Note:Pt resting in bed C/o headache pain. Adm headache cocktail as ordered. Resp even and unalbored. 0 distress noted. Will cont to monitor. This note was completed by: Nakia Chairez RN [facility] PROGRESSon 01-01-2020 PROGRESS HNO ID: [id number] Author: Jenaro Gardiner Service: General Internal Medicine Author Type: Physician Type: Progress Notes Filed: 01/01/2020 12:51 PM Note Text: ROU PROGRESS NOTE Name: Ivette Lopes SERVICE DATE: 01/01/2020 SERVICE TIME: 12:48 PM Hospital Medicine/Primary Attending: Jenaro Gardiner DO ASSESSMENT AND PLAN *Headache after spinal puncture (12/30/2019): blood patch placed. Initially it helped her headache. Her headache worsened after lying flat in the MRI scanner. No relief over the past 24 hours. History of Chiari malformation (12/30/2019): consult Dr Coronel. Leukocytosis (12/30/2019): repeat CBC. Status post placement of ureteral stent (12/30/2019): patient was scheduled to have the ureteral stent removed yesterday but she was unable to have it done because she was in the hospital. SUBJECTIVE INTERVAL HPI: I don't feel any better. MEDICATIONS: Reviewed OBJECTIVE PHYSICAL EXAM: BP 117/63 Pulse 87 Temp (Src) 98.6 (Oral) Resp 16 Ht 5' 3 (1.60m) Wt 139 lb 3.2 oz (63.1kg) SpO2 99% BMI 24.66 kg/(m2). O2 Therapy: Room Air GENERAL: alert, no distress SKIN: No acute rashes LUNGS: CARDIAC: ABDOMEN: Abdomen soft, non-tender. BS normal. No masses or organomegaly. EXTREMITIES: Extremities normal. No deformities, edema, clubbing or skin discoloration. NEURO: Grossly normal cognition, motor function, and cranial nerves III-XII DATA: Diagnostic tests reviewed for today's visit: Most recent labs Most recent imaging VTE Prophylaxis: Early Ambulation Disposition: Home Plan of care discussed with: Patient and RN SIGNATURE: Jenaro Gardiner DO DATE: January 01, 2020 TIME: 12:48 PM [facility] Urinalysis with Microscopico n 09-04-2020 Bacteria LM.HPF (Urine sed) [#/Area] Moderate Critically abnormal Negative [facility] Comment on above: Performed By: #### U AWMIC ####[place] [address] Bilirubin, Urine Negative Normal Negative [facility] Comment on above: Performed By: #### U AWMIC ####[place] [address] Clarity (U) Clear Normal Clear [facility] Comment on above: Performed By: #### U AWMIC ####[place] [address] Color (U) Light Yellow Critically abnormal Yellow [facility] Comment on above: Performed By: #### U AWMIC ####[place] [address] Comments SEE COMMENT Normal [facility] Comment on above: Result Comment: Micr oscopic Examination Performed Performed By: #### U AWMIC ####[place] [address] Epithelial cells LM.HPF (Urine sed) [#/Area] SEE COMMENT Critically abnormal Negative [facility] Comment on above: Result Comment: Few Squamous Epithelial Cells Performed By: #### U AWMIC ####[place] [address] Glucose Ql (U) Negative Normal [facility] Comment on above: Performed By: #### U AWMIC ####[place] [address] Hemoglobin/Blood,Ur Negative Normal Negative [facility] Comment on above: Performed By: #### U AWMIC ####[place] [address] Ketones Ql (U) Negative Normal Negative [facility] Comment on above: Performed By: #### U AWMIC ####[place] [id number] Leukest 500 Critically abnormal Negative [facility] Comment on above: Performed By: #### U AWMIC ####[place] [phone] Mucus Ql (Urine sed) Present Normal [facility] Comment on above: Performed By: #### U AWMIC ####[phone] Nitrite Ql (U) Negative Normal [facility] Comment on above: Performed By: #### U AWMIC ####[place] [phone] pH (Bld) 6.5 Normal 5.0-8.0 [facility] Comment on above: Performed By: #### U AWMIC ####[place] [phone] Protein (U) [Mass/Vol] Negative Normal Negative [facility] Comment on above: Performed By: #### U AWMIC ####[place] [phone] RBC (U) [#/Vol] Rare Critically abnormal [facility] Comment on above: Performed By: #### U AWMIC ####[place] [id number] Specific [place], Ur 1.012 Normal 1.005-1.030 [facility] Comment on above: Performed By: #### U AWMIC ####[place] [id number] Urobilinogen Qn (U) Negative Normal Negative [facility] Comment on above: Performed By: #### U AWMIC ####[place] [phone] WBC (Bld) [#/Vol] 10-25 Critically abnormal Negative [facility] Comment on above: Performed By: #### U AWMIC ####[place] [phone] ALLIED HEALTHon 12-31-2019 ALLIED HEALTH HNO ID: [id number] Author: Arthur Arriaga (Tech) Service: Radiology Author Type: Bat Person Type: Allied Health Filed: 12/30/2019 10:08 PM Note Text: Radiology Service Progress Note PATIENT NAME: Ivette Lopes DATE OF SERVICE: December 30, 2019 TIME: 10:07 PM PATIENT IDENTITY VERIFICATION COMPLETED USING TWO (2) IDENTIFIERS: Name and Date of confirmed by patient verbally and Name and Date of confirmed by identification band. FALL SCREENING: Has the patient had 2 falls in the last year or 1 fall with injury or currently using an Ambulatory Assistive Device (Walker, Cane, Wheelchair, Crutches, etc.)? Inpatient: Screened on floor PATIENT GENDER DATA: Female. status: : No status: NO. PATIENT RELEVANT IMPLANT DATA REVIEWED: Yes RADIOLOGY DEPARTMENT: MR; Exam(s) Completed: Spine: Cervical spine, Thoracic spine and cine PERIPHERAL IV DATA: Not applicable SIGNED BY: Arthur Arriaga December 30, 2019 10:07 PM [facility] MRI CERVICAL SPINE WO IVCONo n 12-31-2019 MRI CERVICAL SPINE WO IVCON * * *Final Report* * * DATE OF EXAM: Dec 30 2019 10:09PM [facility] 0297 - MRI CERVICAL SPINE WO IVCON / PROCEDURE REASON: Chiari malformation * * * * Physician Interpretation * * * * EXAMINATION: MRI THORACIC SPINE WO IVCON, MRI CERVICAL SPINE WO IVCON CLINICAL HISTORY: Chiari I malformation. TECHNIQUE: Routine cervical and thoracic spine MR protocol without gadolinium. CSF flow study of the cervical levels. MQ: MRCTWO_3 COMPARISON: None. RESULT: CERVICAL: Counting reference: Craniocervical junction. Anatomic Variants: None. Localizer images: No additional findings. Alignment: Mild reversal of the cervical lordosis at C5-6. Alignment is otherwise preserved. Craniocervical junction: Again noted is descent of the cerebellar tonsils approximately 5 mm below the foramen magnum on the right suggesting Chiari malformation. Cord: The cervical spinal cord is within normal limits of signal intensity and morphology. Limited evaluation axial gradient images. There is no height T2 signal to suggest recurrent. CSF flow study: There is bidirectional pulsatile CSF flow anterior and posterior to the cervical cord. Bone marrow signal/fracture: No evidence of pathologic marrow infiltration. No evidence of prior fracture. Cervical soft tissues: The paraspinal soft tissues are within normal limits. C2-C3: Canal and foramina are patent. C3-C4: Canal and foramina are patent. C4-C5: Canal and foramina are patent. C5-C6: Mild disc bulge abutting cord ventrally without compression. C6-C7: Canal and foramina are patent. C7-T1: Canal and foramina are patent. THORACIC: Counting reference: Craniocervical junction. The more conventional home health care physician that include the lumbosacral junction are not available for comparison. Localizer images: No additional findings. Alignment: Mild rightward curvature of the thoracic spine. Alignment is otherwise preserved. Cord: The thoracic spinal cord is within normal limits of signal intensity and morphology. There is no evidence of syrinx. Bone marrow signal/fracture: No evidence of pathologic marrow infiltration. No evidence of prior fracture. Height T2 and height T1 signal lesion within T11 represents osseous hemangioma. Thoracic soft tissues: The paraspinal soft tissues are within normal limits. Canal and foramina: The thoracic canal and foramina are patent within the constraints of the study. IMPRESSION: Normal morphology and signal intensity of the visualized spinal cord. Negative for syrinx involving cervical and thoracic spine. CSF flow study as discussed. Mild degenerative changes of the cervical spine as discussed. No significant spinal canal or significant foraminal stenosis throughout the cervical and lumbar spine. Cervical Anatomic Variant: None. Assume 7 cervical vertebrae with counting from the craniocervical junction. Mud Analysis Operator: ELI Transcribe Date/Time: Dec 30 2019 10:20P Dictated by : HARPAL SEGURA MD This examination was interpreted and the report reviewed and electronically signed by: HARPAL SEGURA MD on Dec 30 2019 10:38PM EST [id number] Normal [facility] MRI THORACIC SPINE WO IVCONo n 12-31-2019 MRI THORACIC SPINE WO IVCON * * *Final Report* * * DATE OF EXAM: Dec 30 2019 10:09PM [facility] 0325 - MRI THORACIC SPINE WO IVCON / PROCEDURE REASON: Back pain, cancer or infection suspected * * * * Physician Interpretation * * * * EXAMINATION: MRI THORACIC SPINE WO IVCON, MRI CERVICAL SPINE WO IVCON CLINICAL HISTORY: Chiari I malformation. TECHNIQUE: Routine cervical and thoracic spine MR protocol without gadolinium. CSF flow study of the cervical levels. MQ: MRCTWO_3 COMPARISON: None. RESULT: CERVICAL: Counting reference: Craniocervical junction. Anatomic Variants: None. Localizer images: No additional findings. Alignment: Mild reversal of the cervical lordosis at C5-6. Alignment is otherwise preserved. Craniocervical junction: Again noted is descent of the cerebellar tonsils approximately 5 mm below the foramen magnum on the right suggesting Chiari malformation. Cord: The cervical spinal cord is within normal limits of signal intensity and morphology. Limited evaluation axial gradient images. There is no height T2 signal to suggest recurrent. CSF flow study: There is bidirectional pulsatile CSF flow anterior and posterior to the cervical cord. Bone marrow signal/fracture: No evidence of pathologic marrow infiltration. No evidence of prior fracture. Cervical soft tissues: The paraspinal soft tissues are within normal limits. C2-C3: Canal and foramina are patent. C3-C4: Canal and foramina are patent. C4-C5: Canal and foramina are patent. C5-C6: Mild disc bulge abutting cord ventrally without compression. C6-C7: Canal and foramina are patent. C7-T1: Canal and foramina are patent. THORACIC: Counting reference: Craniocervical junction. The more conventional home health care physician that include the lumbosacral junction are not available for comparison. Localizer images: No additional findings. Alignment: Mild rightward curvature of the thoracic spine. Alignment is otherwise preserved. Cord: The thoracic spinal cord is within normal limits of signal intensity and morphology. There is no evidence of syrinx. Bone marrow signal/fracture: No evidence of pathologic marrow infiltration. No evidence of prior fracture. Height T2 and height T1 signal lesion within T11 represents osseous hemangioma. Thoracic soft tissues: The paraspinal soft tissues are within normal limits. Canal and foramina: The thoracic canal and foramina are patent within the constraints of the study. IMPRESSION: Normal morphology and signal intensity of the visualized spinal cord. Negative for syrinx involving cervical and thoracic spine. CSF flow study as discussed. Mild degenerative changes of the cervical spine as discussed. No significant spinal canal or significant foraminal stenosis throughout the cervical and lumbar spine. Cervical Anatomic Variant: None. Assume 7 cervical vertebrae with counting from the craniocervical junction. Mud Analysis Operator: ELI Transcribe Date/Time: Dec 30 2019 10:20P Dictated by : HARPAL SEGURA MD This examination was interpreted and the report reviewed and electronically signed by: HARPAL SEGURA MD on Dec 30 2019 10:38PM EST [id number] [facility] NURSING PROGon 12-31-2019 NURSING PROG HNO ID: [id number] Author: Kristen RoblesRn) JACQUELIN Flores Service: ? Author Type: Registered Nurse Type: Nursing Progress Note Filed: 12/31/2019 8:56 AM Note Text: Nursing Progress Note Patient Name: Ivette Lopes Patient Location: [id number]/ __ Daily Note:0800 Pt is AANDOX3. C/O AMAYA 07/06. Up with SBA. Steady gait. Tolerated clear liquids well. No N/V. Pt remains safe. Continue care plan. This note was completed by: Kristen Flores RN [facility] NURSING PROG HNO ID: [id number] Author: Pili RoblesRn) JACQUELIN Cid Service: Nursing Author Type: Registered Nurse Type: Nursing Progress Note Filed: 12/31/2019 4:58 AM Note Text: Nursing Progress Note Patient Name: Ivette Lopes Patient Location: [id number]-[id number]/0 __ Daily Note:Pt alert, oriented x3, went for MRI Cervical AND Thoracic Spine, with recommendation to repeat . Medicated with Fioricet for headache at 2340 Hrs. Pt continued on IVF NS 75ml/hr. Maintained on Tele with SR/ST. Reinforced use of call light. Would monitor. This note was completed by: Pili Cid RN [facility] PROGRESSon 12-31-2019 PROGRESS HNO ID: [id number] Author: Krystyna Caldwell Service: ? Author Type: Physician Type: Progress Notes Filed: 12/31/2019 11:23 AM Note Text: RAPID OBSERVATION UNIT PROGRESS NOTE Name: Ivette Lopes SERVICE DATE: 12/31/2019 SERVICE TIME: 11:20 AM Hospital Medicine/Primary Attending: Krystyna Caldwell MD ASSESSMENT AND PLAN Patient Active Hospital Problem List: 1. Headache after spinal puncture 2. History of Chiari malformation POA: Yes 3. Leukocytosis POA: Yes LP headache improved with blood patch - headache from her chiari malformation/benign intracranial hypertension back - trial of headache cocktail - MRI of Cervical spin/thoracic spine with normal flow, no acute findings. Will review results with Dr. Coronel's team. 4. Status post placement of ureteral stent POA: Yes 5. Kidney stone POA: Yes No inpatient management Krystyna Caldwell MD SUBJECTIVE INTERVAL HPI: Pt states headache from LP is improved. Able to get up and move around without increased headache now. However, pt started to get severe headache when she went to lay down for her MRI. It is typical for her headaches that she usually gets. It has not really improved overnight. MEDICATIONS: Reviewed OBJECTIVE PHYSICAL EXAM: BP 108/59 Pulse 69 Temp (Src) 98.5 (Oral) Resp 18 Ht 5' 3 (1.60m) Wt 139 lb 3.2 oz (63.1kg) SpO2 100% BMI 24.66 kg/(m2). O2 Therapy: Room Air GENERAL: alert, no distress, cooperative LUNGS: Lungs clear to auscultation. Good diaphragmatic excursion. CARDIAC: normal S1 and S2; no rubs, murmurs, or gallops ABDOMEN: Abdomen soft, non-tender. BS normal. No masses or organomegaly. EXTREMITIES: Extremities normal. No deformities, edema, clubbing or skin discoloration., No ulcers NEURO: Reflexes normal and symmetric. Sensation grossly intact., Cranial nerves II-XII intact PULSES: 2+ radial, 2+ carotid DATA: Diagnostic tests reviewed for today's visit: Most recent labs VTE Prophylaxis: Early Ambulation Disposition: Home Plan of care discussed with: Patient SIGNATURE: Krystyna Caldwell MD DATE: December 31, 2019 TIME: 11:20 AM Normal [facility] Basic Metabolic Panlon 12-29 Anion gap [Moles/Vol] 9 mmol/L Normal 9-18 [facility] Comment on above: Performed By: #### C BCDIF, BETAMM, BMP ####[place] [phone] Calcium [Mass/Vol] 8.8 mg/dL Normal 8.5-10.5 [facility] Comment on above: Performed By: #### C BCDIF, BETAMM, BMP ####[place] [phone] Chloride [Moles/Vol] 109 mmol/L Normal 98-110 [facility] Comment on above: Performed By: #### C BCDIF, BETAMM, BMP ####[place] [phone] CO2 [Moles/Vol] 18 mmol/L Low 23-32 [facility] Comment on above: Performed By: #### C BCDIF, BETAMM, BMP ####[place] [phone] Creatinine [Mass/Vol] 0.74 mg/dL Normal 0.70-1.40 [facility] Comment on above: Performed By: #### C BCDIF, BETAMM, BMP ####[place] [phone] eGFR- Amer. >60 Normal >60 [facility] Comment on above: Performed By: #### C BCDIF, BETAMM, BMP ####[place] [phone] GFR/1.73 sq M predicted among non-blacks MDRD (S/P/Bld) [Vol rate/Area] mL/min/{1.73_m2} Normal >60 [facility] Comment on above: Performed By: #### C BCDIF, BETAMM, BMP ####[place] [phone] Glucose [Mass/Vol] 127 mg/dL High 65-100 [facility] Comment on above: Performed By: #### C BCDIF, BETAMM, BMP ####[place] [id number] [place], [place] [phone] Potassium [Moles/Vol] 3.6 mmol/L Normal 3.5-5.0 [facility] Comment on above: Performed By: #### C BCDIF, BETAMM, BMP ####[address] [phone] Sodium [Moles/Vol] 136 mmol/L Normal 132-148 [facility] Comment on above: Performed By: #### C BCDIF, BETAMM, BMP ####[place] [id number] [place], [place] [phone] Urea nitrogen [Mass/Vol] 5 mg/dL Low 8-25 [facility] Comment on above: Performed By: #### C BCDIF, BETAMM, BMP ####[address] [phone] CASE MGT INIT ASSESon 2019 CASE MGT INIT ASSES HNO ID: [id number] Author: Gladys Cutler (Sw) Service: Care Management Author Type: Telephone Ad Taker Type: Care Mgt Initial Assessment Filed: 12/30/2019 11:13 AM Note Text: CARE MANAGEMENT: ASSESSMENT AND DISCHARGE PLAN SERVICE DATE: December 30, 2019 SERVICE TIME: 11:00am PRIMARY CARE PHYSICIAN: Aracely Slater CNP ADMISSION STATUS: Observation Needs Prior to Discharge: To Be Determined MEDICAL: BLUE 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 Last discharge within 30 days: No Advance Directive: Current Advance Directive: None Wage And Salary Specialist Attempted to Assist with AD Completion: Yes Action: Education Provided;Patient Unwilling Health LiteracyHow often do you need to have someone help you when you read instructions, pamphlets, or other written material from your doctor or pharmacy? : 1 - Never How confident are you filling out medical forms by yourself?: 1 - Extremely If Patient scores > 3 on either question, the following interventions were put into place:: Patient did not score > 3 on either question. Baseline Mental Status Prior to this Illness what was the patient's Baseline Mental Status?: Alert AND Oriented Prior to this illness, has anyone described the patient having any of the following behaviors?: Not Applicable Relationship of the informant to the patient:: Self Functional Status: Independent Does Patient Currently Receive Any Community Services or Home Care?: None Equipment Prior to Admission: None SOCIAL: Living Arrangements: Home Lives With: Partner;Other: See Comment(2 kids) Financial Resources: EmployedPrimary Contact: Extended Emergency Contact Information Primary Emergency Contact: GAMEZDOMITILA Mobile Relation: Mother Secondary Emergency Contact: JORGE LOPES Mobile Relation: Father Supportive Patient Contact:: Yes Contact Resources: Family Family Name/Phone: Domitila - Mother Social Needs Food insecurity Worry: Never true Inability: Never true Resources Needed: No Social Needs Financial resource strain: Not very hard Social Needs Transportation needs Medical: No Non-medical: No Caregiver AssessmentCaregiver is ready, willing and able to meet the patient's needs as recommended by the inter-professional team:: No Caregiver needed Does the patient have an acute stroke diagnosis, or has the patient had a stroke during this admission?: No Patient's transition needs and plan for meeting these needs: IPTA, plan is home with self-care, basic needs Patient's perception of need for this admission: s/p LP Headache Medication Adherance I am convinced of the importance of my prescription medication: 0 - Agree Completely I worry that my prescription medication will do more harm than good to me : 0 - Disagree Completely I feel financially burdened by my [id number] expenses for my prescription medication:: 0 - Disagree Completely Risk Score: 0 Patient is categorized as: Low risk < 2 Are you interested in bedside delivery of your medications? No Is Patient Psychosocially Complex?: No ASSESSMENT AND PLAN: Medical Needs: Medical Needs: Two or more chronic diseases Psychosocial Needs: Psychosocial Needs: None FREEDOM OF CHOICE EXPLAINED: [place] of Choice Given: No Reason Not Given: No placements necessary POTENTIAL TRANSITION PLANS Home;No Services Indicated SW spoke with pt on ROU using COVID precautions. Pt is 24yo female referred to observation due to headache, kidney stone. AANDOX4, independent prior to admission with ADLs and iADLs, lives with her 2 children and their father, working. Does not utilize any DME, senior care or community resources. Has d/c transportation via her children's father, Tawanda. Anticipate no skilled needs at d/c. SW/CM available to assist as needed with transition planning. SIGNATURE: ANAHI GAGE PATIENT NAME: Ivette Lopes DATE: December 30, 2019 TIME: 11:00 AM PAGER/CONTACT #: [phone] Normal [facility] CBC and Differentialon 12-29 Abs Baso 0.05 k/uL Normal <0.11 [facility] Comment on above: Performed By: #### C BCDIF, BETAMM, BMP ####[place] [phone] Abs [place] 0.82 k/uL Normal <0.87 [facility] Comment on above: Performed By: #### C BCDIF, BETAMM, BMP ####[place] [phone] Abs Neut 8.60 k/uL High 1.45-7.50 [facility] Comment on above: Performed By: #### C BCDIF, BETAMM, BMP ####[place] [phone] Absolute nRBC <0.01 Normal <0.01 [facility] Comment on above: Performed By: #### C BCDIF, BETAMM, BMP ####[place] [phone] Basophils/100 WBC (Bld) 0.4 % Normal [facility] Comment on above: Performed By: #### C BCDIF, BETAMM, BMP ####[place] [phone] DTYPE Auto Diff Normal [facility] Comment on above: Performed By: #### C BCDIF, BETAMM, BMP ####[place] [address] Eosinophils (Bld) [#/Vol] 0.08 10*3/uL Normal <0.46 [facility] Comment on above: Performed By: #### C BCDIF, BETAMM, BMP ####[place] [address] Eosinophils/100 WBC (Bld) 0.7 % Normal [facility] Comment on above: Performed By: #### C BCDIF, BETAMM, BMP ####[place] [address] Erythrocyte distribution width (RBC) [Ratio] 12.0 % Normal 11.5-15.0 [facility] Comment on above: Performed By: #### C BCDIF, BETAMM, BMP ####[place] [address] Hematocrit (Bld) [Volume fraction] 39.5 % Normal 36.0-46.0 [facility] Comment on above: Performed By: #### C BCDIF, BETAMM, BMP ####[place] [address] Hemoglobin (Bld) [Mass/Vol] 13.6 g/dL Normal 11.5-15.5 [facility] Comment on above: Performed By: #### C BCDIF, BETAMM, BMP ####[place] [address] Lymphocytes (Bld) [#/Vol] 1.70 10*3/uL Normal 1.00-4.00 [facility] Comment on above: Performed By: #### C BCDIF, BETAMM, BMP ####[place] [address] Lymphocytes/100 WBC (Bld) 15.1 % Normal [facility] Comment on above: Performed By: #### C BCDIF, BETAMM, BMP ####[place] [phone] MCH (RBC) [Entitic mass] 30.2 pG Normal 26.0-34.0 [facility] Comment on above: Performed By: #### C BCDIF, BETAMM, BMP ####[place] [phone] MCHC (RBC) [Mass/Vol] 34.4 g/dL Normal 30.5-36.0 [facility] Comment on above: Performed By: #### C BCDIF, BETAMM, BMP ####[place] [phone] MCV (RBC) [Entitic vol] 87.8 fL Normal 80.0-100.0 [facility] Comment on above: Performed By: #### C BCDIF, BETAMM, BMP ####[place] [phone] Monocytes/100 WBC (Bld) 7.3 % Normal [facility] Comment on above: Performed By: #### C BCDIF, BETAMM, BMP ####[place] [phone] Neutrophils/100 WBC (Bld) 76.5 % Normal [facility] Comment on above: Performed By: #### C BCDIF, BETAMM, BMP ####[place] [phone] NRBCs 0.0 /100 WBC Normal 0 [facility] Comment on above: Performed By: #### C BCDIF, BETAMM, BMP ####[place] [phone] Platelet mean volume (Bld) [Entitic vol] 11.2 fL Normal 9.0-12.7 [facility] Comment on above: Performed By: #### C BCDIF, BETAMM, BMP ####[place] [phone] Platelets (Bld) [#/Vol] 231 10*3/uL Normal 150-400 [facility] Comment on above: Performed By: #### C BCDIF, BETAMM, BMP ####[place] [id number] [place], [place] [phone] RBC (Bld) [#/Vol] 4.50 10*6/uL Normal 3.90-5.20 [facility] Comment on above: Performed By: #### C BCDIF, BETAMM, BMP ####[place] [id number] [place], [place] [phone] WBC (Bld) [#/Vol] 11.25 10*3/uL High 3.70-11.00 [facility] Comment on above: Performed By: #### C BCDIF, BETAMM, BMP ####[facility] [place], [place] [phone] CONSULTon 12-30-2019 CONSULT HNO ID: [id number] Author: Myke Harvey Service: Pain Management Author Type: Anesthesiologist Type: Consults Filed: 12/30/2019 2:42 PM Note Text: Anesthesia Pain Service Consult Note PATIENT NAME: Ivette Lopes : 1995 Pain Assessment Pain Level 12/29 1136 6 12/29 09 5 12/29 0424 10 Acceptable level 12/29 113 2 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 Service Requesting Consult: Neurosurgery/Spine Opinion/Advice Regarding: Epidural Blood Patch s/p LP under fluoroscopy. Subjective Chief Complaint: Acute Interval HPI Location of Pain: Head Pain At Rest: 8, Pain Ambulation: 10 Pain Character: Sharp, Stabbing, Shooting and Throbbing Pain Duration: Does not go away Pain Exacerbated By: sitting and standing Pain Relieved By: Lying down Pain Onset: Varies YARD MANAGER Patient on IV YARD MANAGER?: No , Block Candidate for Pre-Op Block?: Yes Anticipated Block Type: Epidural blood patch Block Laterality: Trunk Plan Analgesic options via: Epidural Blood Patch. Plan Discussed With: Caregiver, family and patient Patient status post LP under fluoroscopy being consulted to APMS for epidural blood patch. Epidural blood patch performed in PACU (see procedure note). Headache resolved. Educated Patient on lying flat for at least 2 hours and minimizing heavy lifting over 5 pounds and to avoid straining and bending over. APMS will sign-off at this time. Appreciate the consult. APS Progress Note ROS Sensory / Motor Exam Affect: alert, oriented to person, place, and time, awake, General Appearance: appears uncomfortable, Surgical Limb LUE: sensation intact RUE: sensation intact LLE: sensation intact RLE: sensation intact Non-Surgical Limb LUE: sensation intact RUE: sensation intact LLE: sensation intact RLE: sensation intact Trunk Abdomen: sensation intact Back: sensation intact Palpitation of abdomen: soft BP 117/59 Pulse 73 Temp 36.9 ?C (98.4 ?F) (Oral) Resp 13 Ht 160 cm (5' 3 ) Wt 63.1 kg (139 lb 3.2 oz) SpO2 100% BMI 24.66 kg/m? No intake or output data in the 24 hours ending 12/30/19 1435 Current Facility-Administered Medications Medication Dose Route Frequency - acetaZOLAMIDE 250 mg tab(s) (DIAMOX) 250 mg ORAL BID - sodium chloride 0.9 % (flush) 3-5 mL (BD POSIFLUSH) 3-5 mL INTRAVENOUS q 12 H - sodium chloride 0.9 % (flush) 2-10 mL (BD POSIFLUSH) 2-10 mL INTRAVENOUS q 12 H - ondansetron 4 mg tab(s) (ZOFRAN) 4 mg ORAL q 6 H PRN Or - ondansetron (PF) 4 mg injection (ZOFRAN) 4 mg INTRAVENOUS q 6 H PRN - acetaminophen 650 mg tab(s) (TYLENOL) 650 mg ORAL q 6 H PRN - acetaminophen 325 mg-caffeine 40 mg-butalbital 50 mg 1 tablet (FIORICET) 1 tablet ORAL q 6 H PRN - NaCl 0.9% iv infusion 75 mL/hr INTRAVENOUS CONTINUOUS ALLERGIES Allergen Reactions - Dilaudid [Hydromorp* Intolerance Pt had Nausea /Vomitinglasted 2 days Lab Results: PT Sec 11.6 12/28/2019 PT INR 1.1 12/28/2019 Hemoglobin 13.6 12/30/2019 Hematocrit 39.5 12/30/2019 Platelet Count 231 12/30/2019 Problem List: *Headache after spinal puncture (12/30/2019) History of Chiari malformation (12/30/2019) Leukocytosis (12/30/2019) Status post placement of ureteral stent (12/30/2019) Kidney stone (12/30/2019) No past medical history on file. No past surgical history on file. 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 [facility] Comment on above: Result Comment: This test was developed and its performance characteristics determined by [facility] [place]. This test has been authorized by FDA under an Emergency Use Authorization (EUA). This test has been validated in accordance with the FDA's Guidance Document Policy for Diagnostics Testing in Laboratories Certified to Perform High Complexity Testing under CLIA prior to Emergency use Authorization for Coronavirus Disease 2019 during the Public Health Emergency issued on June 27, 2019. Performed By: #### C OVID ####[facility] [place], [place] [phone] [facility]als [facility] [place], [place] [phone] COVID 19 Source 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ER UPPER RESPIRATORY TRACT SWAB Normal [facility] Comment on above: Performed By: #### C OVID ####[facility] [place] [address] [phone] [address] [place], [place] [phone] HISTORY PHYSICALon 0 HISTORY PHYSICAL HNO ID: [id number] Author: Aracely Childress Service: General Internal Medicine Author Type: Nurse Practitioner Type: HANDP Filed: 12/30/2019 6:35 AM Note Text: HISTORY AND PHYSICAL EXAMINATION SERVICE DATE: 12/30/2019 SERVICE TIME: 3:31 AM PRIMARY CARE PHYSICIAN: Aracely Slater CNP Subjective CHIEF COMPLAINT: headache HPI: This is a 24 year old female who presents with headache that started on 12/28 following LP done on 12/27. The patient has Chiari malformation and has been having more AMAYA lately so was seen by neurosurgery and advised to have LP which was done on 12/27. The patient states she did fine with the procedure, but the next day noticed worsening AMAYA, nausea. The patient presented to ED near her home ([facility]) and was advised to transfer to since she had LP done here. She states while in the ED, when she was told to lay down flat, this initially helped her AMAYA greatly, and when she sat up again, her AMAYA pain worsened. She states she sat up and laid down again, and at that point, her AMAYA just stayed the same. She c/o pressure in her eyes and in the back of her neck. She states it feels like something is pushing on her spine. She denies fever or chills. She was admitted to CDU for further monitoring, symptom management, and possibly a blood patch. No past medical history on file. No past surgical history on file. FAMILY HISTORY Problem Relation Age of Onset - No Ocular Disease No Family History Social History Tobacco Use - Smoking status: Never Smoker - Smokeless tobacco: Never Used Substance Use Topics - Alcohol use: Never Frequency: Never - Drug use: Not on file Comment: not asked - ondansetron orally disintegrating (ZOFRAN ODT) 4 mg disintegrating tablet, Take 4 mg by mouth every 8 hours as needed., Disp: , Rfl: , 12/29/2019 at Unknown time - cephALEXin (KEFLEX) 500 mg capsule, Take 500 mg by mouth once daily., Disp: , Rfl: , 12/29/2019 at Unknown time - acetaZOLAMIDE (DIAMOX) 250 mg tablet, Take 1 tablet by mouth twice daily., Disp: 60 tablet, Rfl: 1, 12/29/2019 at Unknown time - oxybutynin ER (DITROPAN XL) 10 mg 24 hr tablet, Take 10 mg by mouth once daily., Disp: , Rfl: - ketorolac (TORADOL) 10 mg tablet, Take 10 mg by mouth every 8 hours as needed., Disp: , Rfl: , 12/22/2019 ALLERGIES No Known Allergies COMPLETE REVIEW OF SYSTEMS: PAIN ASSESSMENT: CURRENTLY HAVING PAIN; see HPI GENERAL: No weight loss, malaise or fevers HEENT: Positive for headache and blurred vision NECK: Positive for pain, no significant neck swelling RESPIRATORY: Negative for cough, wheezing, and shortness of breath CARDIOVASCULAR: Negative for chest pain, leg swelling, and palpitations GI: (+) nausea, no vomiting or diarrhea : No history of dysuria, frequency or incontinence 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: Negative for abnormal vaginal bleeding, abnormal vaginal discharge MUSCULOSKELETAL: +back pain SKIN: Negative for lesions, rash, and itching PSYCH: Negative for sleep disturbance, mood disorder and recent psychosocial stressors HEMATOLOGY/LYMPHOLOGY: Negative for prolonged bleeding, bruising easily or swollen nodes ENDOCRINE: Negative for cold or heat intolerance, polyuria, polydipsia and goiter NEURO: +history of headaches, negative for seizures Objective PHYSICAL EXAM: Physical Exam Performed: GENERAL: Alert, no acute distress, cooperative, laying flat in bed SKIN: Skin color, texture, turgor normal. No rashes or lesions noted. HEAD: No significant findings EYES: EOMI, sclera anicteric OROPHARYNX: not visualized d/t patient wearing a mask NECK: Carotid pulse normal contour, Supple BACK: Back symmetric, ROM normal LUNGS: Lungs clear to auscultation, no respiratory distress or use of accessory muscles noted CARDIAC: mildly tachy ABDOMEN: Abdomen soft, non-tender EXTREMITIES: no edema NEURO: Grossly normal cognition and motor function, no focal neuro deficit noted PULSES: 2+ radial, 2+ carotid BP 128/72 Pulse 108 Temp (Src) 97.6 (Oral) Resp 17 Wt 139 lb 3.2 oz (63.1kg) SpO2 100% O2 Therapy: Room Air DATA: Diagnostic tests reviewed for today's visit: Outside chart from [place] ED reviewed. -- see records in patient's paper chart Assessment/Plan Principal Problem: Headache after spinal puncture History of Chiari malformation Leukocytosis - s/p LP on 12/27 for further evaluation of AMAYA/blurred vision in the setting of chiari malformation, had been started on Diamox prior to LP - developed positional AMAYA, blurred vision and nausea 1 day s/p LP - overall AMAYA was positional and improved with laying flat, now laying flat not helping as much - no fever or chills - per OSH, WBC 16.7, CT brain negative, UA appears negative for infection - was given a dose of ceftriaxone at OSH since WBC elevated PLAN: - observation - telemetry - recheck CBC and BMP - pain/symptom control, trial AMAYA cocktail - neuro checks - IVF - anesthesia consult for possible blood patch - continue to monitor Active Problems: Status post placement of ureteral stent Kidney stone - s/p right ureteral stent for kidney stone, was scheduled for removal TODAY at OSH - CT A/P at OSH unremarkable/shows good placement of stent, UA appears negative for infection - continue daily prophylactic Keflex as was taking prior to admission Resolved Problems: * No resolved hospital problems. * edication and Non-Pharmacologic VTE Prophylaxis/Anticoagul ants 12/30/19 0315 pneumatic compression stockings (md,oh) VTE Prophylaxis: VTE prophylaxis appropriate SIGNATURE: Aracely Childress APRN.TECHNICAL PROFESSIONAL PATIENT NAME: Ivette Lopes DATE: December 30, 2019 TIME: 3:31 AM PAGER/CONTACT #: [phone] [facility] NURSING PROGon 12-30-2019 NURSING PROG HNO ID: [id number] Author: Kelley (Rn) JACQUELIN Curtis Service: ? Author Type: Registered Nurse Type: Nursing Progress Note Filed: 12/30/2019 3:28 PM Note Text: Nursing Progress Note Patient Name: Ivette Lopes Patient Location: [facility] OR POOL/[facility] OR POOL __ Daily Note: 1230: Pt off floor with transport in stable condition. 1500: Pt returned to unit. Boyfriend remains at bedside. This note was completed by: Kelley Curtis RN [facility] NURSING PROG HNO ID: [id number] Author: Alexandra RoblesRnJill Arambula RN Service: ? Author Type: Registered Nurse Type: Nursing Progress Note Filed: 12/30/2019 11:33 AM Note Text: Nursing Progress Note Patient Name: Ivette Lopes Patient Location: [id number]/ __ Daily Note: 0700-Assumed care of patient. Received report from Pili Robins Rn. Assessment charted in NPR. AANDO x 3, pleasant and cooperative.VSS; Afebrile. Telemetry order verified and current, NSR on monitor, no C/O chest pain/discomfort. Neuro checks intact. Speech is clear and coherent. Bilateral extremities strong and equal with facial symmetry. Pt denies headache at this time. Pt does c/o pressure in upper back area that radiated to neck. Dr. Caldwell notified. Pt states no needs at this time. Will continue to monitor. Safety maintained at this time, call light and personal belongings in reach, bed locked and lowered. 0947-Pt c/o headache and nausea after getting up to bathroom. Prn medication given per JUN. 1100-Report given to Kelley Robins Rn. This note was completed by: Alexandra Arambula RN [facility] NURSING PROG HNO ID: [id number] Author: Pili Fountain) JACQUELIN Cid Service: Nursing Author Type: Registered Nurse Type: Nursing Progress Note Filed: 12/30/2019 5:10 AM Note Text: Nursing Progress Note Patient Name: Ivette Lopes Patient Location: [id number]/ __ Transfer Note: Patient transferred into room/unit 525/Bed1 in stable condition. Actions taken: Patient belongings with patient. Pt admitted from [place] ED with spinal headache. Pt had LP done at for Chiari Malformation, was at work yesterday , when she started having headache, Nausea AND Vomiting. Pt placed on Tele with sinus Tachy. New Heplock inserted. Bed alarms on. Reinforced use of call light. Would monitor. 0415Hrs- Headache cocktail given. Pt resting comfortably. This note was completed by: Pili Cid RN [facility] PROGRESSon 12-30-2019 PROGRESS HNO ID: [id number] Author: Krystyna Caldwell Service: ? Author Type: Physician Type: Progress Notes Filed: 12/30/2019 3:43 PM Note Text: RAPID OBSERVATION UNIT PROGRESS NOTE Name: Ivetet Lopes SERVICE DATE: 12/30/2019 SERVICE TIME: 1:01 PM Hospital Medicine/Primary Attending: Krystyna Caldwell MD ASSESSMENT AND PLAN Patient Active Hospital Problem List: 1. Headache after spinal puncture 2. History of Chiari malformation POA: Yes 3. Leukocytosis POA: Yes Getting blood patch at this time - discussed case with Dr. Coronel's team at [facility] - plan to get MRI cervical spine with cine flow and MRI lumbar spine, per his request. He will be seeing her this week in follow up 4. Status post placement of ureteral stent POA: Yes 5. Kidney stone POA: Yes Will follow up outpatient with her urologist - on keflex Krystyna Caldwell MD Addendum: Just returned from blood patch - plan for MRI - likely observe overnight to make sure improving before discharging; especially considering she lives over an hour home. Krystyna Caldwell MD SUBJECTIVE INTERVAL HPI: Still with severe headache, worse with standing. MEDICATIONS: Reviewed OBJECTIVE PHYSICAL EXAM: BP 105/54 Pulse 95 Temp (Src) 98.4 (Oral) Resp 17 Ht 5' 3 (1.60m) Wt 139 lb 3.2 oz (63.1kg) SpO2 99% BMI 24.66 kg/(m2). O2 Therapy: Room Air GENERAL: alert, no distress, cooperative, appears uncomfortable LUNGS: Lungs clear to auscultation. Good diaphragmatic excursion. CARDIAC: normal S1 and S2; no rubs, murmurs, or gallops ABDOMEN: Abdomen soft, non-tender. BS normal. No masses or organomegaly. EXTREMITIES: Extremities normal. No deformities, edema, clubbing or skin discoloration., No ulcers NEURO: Reflexes normal and symmetric. Sensation grossly intact., Cranial nerves II-XII intact PULSES: 2+ radial, 2+ carotid DATA: Diagnostic tests reviewed for today's visit: Most recent labs VTE Prophylaxis: Early Ambulation Disposition: Home Plan of care discussed with: Patient SIGNATURE: Krystyna Caldwell MD DATE: December 30, 2019 TIME: 1:01 PM Normal [facility] Serum Beta HCG East//CODY/ME D/SL/LOon 12-30-2019 HCG.beta subunit Qn Negative Normal Negative [facility] Comment on above: Performed By: #### C BCDIF, BETAMM, BMP ####[facility] [place], [place] [phone] HOSPon 12-29-2019 HOSP Patient:Esteban Lopes en MRN: Height:5' 3 (1.6 m) Weight:139 lb 3.2 oz (63.141 kg) Outpatient Medications as of 01/01/20: ondansetron orally disintegrating (ZOFRAN ODT) 4 mg disintegrating tablet oxybutynin ER (DITROPAN XL) 10 mg 24 hr tablet ketorolac (TORADOL) 10 mg tablet cephALEXin (KEFLEX) 500 mg capsule acetaZOLAMIDE (DIAMOX) 250 mg tablet Admission/Clinic Administered Medications as of 01/01/20: acetaZOLAMIDE 250 mg tab(s) (DIAMOX) sodium chloride 0.9 % (flush) 3-5 mL (BD POSIFLUSH) sodium chloride 0.9 % (flush) 2-10 mL (BD POSIFLUSH) ondansetron 4 mg tab(s) (ZOFRAN) ondansetron (PF) 4 mg injection (ZOFRAN) acetaminophen 650 mg tab(s) (TYLENOL) acetaminophen 325 mg-caffeine 40 mg-butalbital 50 mg 1 tablet (FIORICET) Problem List: Headache after spinal puncture [G97.1] History of Chiari malformation [Z86.69] Leukocytosis [D72.829] Status post placement of ureteral stent [Z96.0] Kidney stone [N20.0] Allergies: Dilaudid [Hydromorphone] Date Verified: 01/01/20 Lab Values Lab Value Units Date High Low POTA* 3.6 mmol/L 12/30/2019 5.0 3.5 KEYLA* 39.5 % 12/30/2019 46.0 36.0 Progress Notes (): Pili Cid RN, RN 12/30/2019 5:10 AM Signed Nursing Progress Note Patient Name: Ivette Lopes [id number][facility] __ Transfer Note: Patient transferred into room/unit 525/Bed1 in stable condition. Actions taken: Patient belongings with patient. Pt admitted from [place] ED with spinal headache. Pt had LP done at for Chiari Malformation, was at work yesterday , when she started having headache, Nausea AND Vomiting. Pt placed on Tele with sinus Tachy. New Heplock inserted. Bed alarms on. Reinforced use of call light. Would monitor. 0415Hrs- Headache cocktail given. Pt resting comfortably. This note was completed by: JACQUELIN Dodge APRN.TECHNICAL PROFESSIONAL 12/30/2019 6:35 AM Signed HISTORY AND PHYSICAL EXAMINATION SERVICE DATE: 12/30/2019 SERVICE TIME: 3:31 AM PRIMARY CARE PHYSICIAN: Aracely Slater CNP Subjective CHIEF COMPLAINT: headache HPI: This is a 24 year old female who presents with headache that started on 12/28 following LP done on 12/27. The patient has Chiari malformation and has been having more AMAYA lately so was seen by neurosurgery and advised to have LP which was done on 12/27. The patient states she did fine with the procedure, but the next day noticed worsening AMAYA, nausea. The patient presented to ED near her home ([facility]) and was advised to transfer to since she had LP done here. She states while in the ED, when she was told to lay down flat, this initially helped her AMAYA greatly, and when she sat up again, her AMAYA pain worsened. She states she sat up and laid down again, and at that point, her AMAYA just stayed the same. She c/o pressure in her eyes and in the back of her neck. She states it feels like something is pushing on her spine. She denies fever or chills. She was admitted to CDU for further monitoring, symptom management, and possibly a blood patch. No past medical history on file. No past surgical history on file. FAMILY HISTORY Problem Relation Age of Onset - No Ocular Disease No Family History Social History Tobacco Use - Smoking status: Never Smoker - Smokeless tobacco: Never Used Substance Use Topics - Alcohol use: Never Frequency: Never - Drug use: Not on file Comment: not asked - ondansetron orally disintegrating (ZOFRAN ODT) 4 mg disintegrating tablet, Take 4 mg by mouth every 8 hours as needed., Disp: , Rfl: , 12/29/2019 at Unknown time - cephALEXin (KEFLEX) 500 mg capsule, Take 500 mg by mouth once daily., Disp: , Rfl: , 12/29/2019 at Unknown time - acetaZOLAMIDE (DIAMOX) 250 mg tablet, Take 1 tablet by mouth twice daily., Disp: 60 tablet, Rfl: 1, 12/29/2019 at Unknown time - oxybutynin ER (DITROPAN XL) 10 mg 24 hr tablet, Take 10 mg by mouth once daily., Disp: , Rfl: - ketorolac (TORADOL) 10 mg tablet, Take 10 mg by mouth every 8 hours as needed., Disp: , Rfl: , 12/22/2019 ALLERGIES No Known Allergies COMPLETE REVIEW OF SYSTEMS: PAIN ASSESSMENT: CURRENTLY HAVING PAIN; see HPI GENERAL: No weight loss, malaise or fevers HEENT: Positive for headache and blurred vision NECK: Positive for pain, no significant neck swelling RESPIRATORY: Negative for cough, wheezing, and shortness of breath CARDIOVASCULAR: Negative for chest pain, leg swelling, and palpitations GI: (+) nausea, no vomiting or diarrhea : No history of dysuria, frequency or incontinence 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: Negative for abnormal vaginal bleeding, abnormal vaginal discharge MUSCULOSKELETAL: +back pain SKIN: Negative for lesions, rash, and itching PSYCH: Negative for sleep disturbance, mood disorder and recent psychosocial stressors HEMATOLOGY/LYMPHOLOGY: Negative for prolonged bleeding, bruising easily or swollen nodes ENDOCRINE: Negative for cold or heat intolerance, polyuria, polydipsia and goiter NEURO: +history of headaches, negative for seizures Objective PHYSICAL EXAM: Physical Exam Performed: GENERAL: Alert, no acute distress, cooperative, laying flat in bed SKIN: Skin color, texture, turgor normal. No rashes or lesions noted. HEAD: No significant findings EYES: EOMI, sclera anicteric OROPHARYNX: not visualized d/t patient wearing a mask NECK: Carotid pulse normal contour, Supple BACK: Back symmetric, ROM normal LUNGS: Lungs clear to auscultation, no respiratory distress or use of accessory muscles noted CARDIAC: mildly tachy ABDOMEN: Abdomen soft, non-tender EXTREMITIES: no edema NEURO: Grossly normal cognition and motor function, no focal neuro deficit noted PULSES: 2+ radial, 2+ carotid BP 128/72 Pulse 108 Temp (Src) 97.6 (Oral) Resp 17 Wt 139 lb 3.2 oz (63.1kg) SpO2 100% O2 Therapy: Room Air DATA: Diagnostic tests reviewed for today's visit: Outside chart from [facility] reviewed. -- see records in patient's paper chart Assessment/Plan Principal Problem: Headache after spinal puncture History of Chiari malformation Leukocytosis - s/p LP on 12/27 for further evaluation of AMAYA/blurred vision in the setting of chiari malformation, had been started on Diamox prior to LP - developed positional AMAYA, blurred vision and nausea 1 day s/p LP - overall AMAYA was positional and improved with laying flat, now laying flat not helping as much - no fever or chills - per OSH, WBC 16.7, CT brain negative, UA appears negative for infection - was given a dose of ceftriaxone at OSH since WBC elevated PLAN: - observation - telemetry - recheck CBC and BMP - pain/symptom control, trial AMAYA cocktail - neuro checks - IVF - anesthesia consult for possible blood patch - continue to monitor Active Problems: Status post placement of ureteral stent Kidney stone - s/p right ureteral stent for kidney stone, was scheduled for removal TODAY at OSH - CT A/P at OSH unremarkable/shows good placement of stent, UA appears negative for infection - continue daily prophylactic Keflex as was taking prior to admission Resolved Problems: * No resolved hospital problems. * edication and Non-Pharmacologic VTE Prophylaxis/Anticoagul ants 12/30/19 0315 pneumatic compression stockings (md,oh) VTE Prophylaxis: VTE prophylaxis appropriate SIGNATURE: Aracely Childress APRN.CNP PATIENT NAME: Ivette Lopes DATE: December 30, 2019 TIME: 3:31 AM PAGER/CONTACT #: [phone] Alexandra Arambula RN, RN 12/30/2019 11:33 AM Addendum Nursing Progress Note Patient Name: Ivette Lopes Patient Location: [id number]/[address] 525-01 __ Daily Note: 0700-Assumed care of patient. Received report from Pili Robins Rn. Assessment charted in NPR. AANDO x 3, pleasant and cooperative.VSS; Afebrile. Telemetry order verified and current, NSR on monitor, no C/O chest pain/discomfort. Neuro checks intact. Speech is clear and coherent. Bilateral extremities strong and equal with facial symmetry. Pt denies headache at this time. Pt does c/o pressure in upper back area that radiated to neck. Dr. Caldwell notified. Pt states no needs at this time. Will continue to monitor. Safety maintained at this time, call light and personal belongings in reach, bed locked and lowered. 0947-Pt c/o headache and nausea after getting up to bathroom. Prn medication given per MAR. 1100-Report given to Kelley Robins Rn. 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 Last discharge within 30 days: No Advance Directive: Current Advance Directive: None Wage And Salary Specialist Attempted to Assist with AD Completion: Yes Action: Education Provided;Patient Unwilling Health LiteracyHow often do you need to have someone help you when you read instructions, pamphlets, or other written material from your doctor or pharmacy? : 1 - Never How confident are you filling out medical forms by yourself?: 1 - Extremely If Patient scores > 3 on either question, the following interventions were put into place:: Patient did not score > 3 on either question. Baseline Mental Status Prior to this Illness what was the patient's Baseline Mental Status?: Alert AND Oriented Prior to this illness, has anyone described the patient having any of the following behaviors?: Not Applicable Relationship of the informant to the patient:: Self Functional Status: Independent Does Patient Currently Receive Any Community Services or Home Care?: None Equipment Prior to Admission: None SOCIAL: Living Arrangements: Home Lives With: Partner;Other: See Comment(2 kids) Financial Resources: EmployedPrimary Contact: Extended Emergency Contact Information Primary Emergency Contact: DOMITILA GAMEZ Mobile Relation: Mother Secondary Emergency Contact: JORGE LOPES Mobile Relation: Father Supportive Patient Contact:: Yes Contact Resources: Family Family Name/Phone: Domitila - Mother Social Needs Food insecurity Worry: Never true Inability: Never true Resources Needed: No Social Needs Financial resource strain: Not very hard Social Needs Transportation needs Medical: No Non-medical: No Caregiver AssessmentCaregiver is ready, willing and able to meet the patient's needs as recommended by the inter-professional team:: No Caregiver needed Does the patient have an acute stroke diagnosis, or has the patient had a stroke during this admission?: No Patient's transition needs and plan for meeting these needs: IPTA, plan is home with self-care, basic needs Patient's perception of need for this admission: s/p LP Headache Medication Adherance I am convinced of the importance of my prescription medication: 0 - Agree Completely I worry that my prescription medication will do more harm than good to me : 0 - Disagree Completely I feel financially burdened by my [id number] expenses for my prescription medication:: 0 - Disagree Completely Risk Score: 0 Patient is categorized as: Low risk < 2 Are you interested in bedside delivery of your medications? No Is Patient Psychosocially Complex?: No ASSESSMENT AND PLAN: Medical Needs: Medical Needs: Two or more chronic diseases Psychosocial Needs: Psychosocial Needs: None FREEDOM OF CHOICE EXPLAINED: [place] of Choice Given: No Reason Not Given: No placements necessary POTENTIAL TRANSITION PLANS Home;No Services Indicated SW spoke with pt on ROU using COVID precautions. Pt is 24yo female referred to observation due to headache, kidney stone. AANDOX4, independent prior to admission with ADLs and iADLs, lives with her 2 children and their father, working. Does not utilize any DME, senior care or community resources. Has d/c transportation via her children's father, Tawanda. Anticipate no skilled needs at d/c. SW/CM available to assist as needed with transition planning. SIGNATURE: ANAHI GAGE PATIENT NAME: Ivette Lopes DATE: December 30, 2019 TIME: 11:00 AM PAGER/CONTACT #: [phone] Kelley Curtis RN, RN 12/30/2019 3:28 PM Addendum Nursing Progress Note Patient Name: Ivette Lopes Patient Location: [facility] POOL/[facility] OR POOL __ Daily Note: 1230: Pt off floor with transport in stable condition. 1500: Pt returned to unit. Boyfriend remains at bedside. This note was completed by: Kelley Curtis RN Previous Version Krystyna Caldwell MD 12/30/2019 3:43 PM Addendum [facility] PROGRESS NOTE Name: Ivette Lopes SERVICE DATE: 12/30/2019 SERVICE TIME: 1:01 PM Hospital Medicine/Primary Attending: Krystyna Caldwell MD ASSESSMENT AND PLAN Patient Active Hospital Problem List: 1. Headache after spinal puncture 2. History of Chiari malformation POA: Yes 3. Leukocytosis POA: Yes Getting blood patch at this time - discussed case with Dr. Coronel's team at [facility] - plan to get MRI cervical spine with cine flow and MRI lumbar spine, per his request. He will be seeing her this week in follow up 4. Status post placement of ureteral stent POA: Yes 5. Kidney stone POA: Yes Will follow up outpatient with her urologist - on keflex Krystyna Caldwell MD Addendum: Just returned from blood patch - plan for MRI - likely observe overnight to make sure improving before discharging; especially considering she lives over an hour home. Krystyna Caldwell MD SUBJECTIVE INTERVAL HPI: Still with severe headache, worse with standing. MEDICATIONS: Reviewed OBJECTIVE PHYSICAL EXAM: BP 105/54 Pulse 95 Temp (Src) 98.4 (Oral) Resp 17 Ht 5' 3 (1.60m) Wt 139 lb 3.2 oz (63.1kg) SpO2 99% BMI 24.66 kg/(m2). O2 Therapy: Room Air GENERAL: alert, no distress, cooperative, appears uncomfortable LUNGS: Lungs clear to auscultation. Good diaphragmatic excursion. CARDIAC: normal S1 and S2; no rubs, murmurs, or gallops ABDOMEN: Abdomen soft, non-tender. BS normal. No masses or organomegaly. EXTREMITIES: Extremities normal. No deformities, edema, clubbing or skin discoloration., No ulcers NEURO: Reflexes normal and symmetric. Sensation grossly intact., Cranial nerves II-XII intact PULSES: 2+ radial, 2+ carotid DATA: Diagnostic tests reviewed for today's visit: Most recent labs VTE Prophylaxis: Early Ambulation Disposition: Home Plan of care discussed with: Patient SIGNATURE: Krystyna Caldwell MD DATE: December 30, 2019 TIME: 1:01 PM Previous Version Myke Harvey DO 12/30/2019 2:42 PM Signed Anesthesia Pain Service Consult Note PATIENT NAME: Ivette Lopes : 1995 Pain Assessment Pain Level 12/29 1136 6 12/29 0900 5 12/29 0424 10 Acceptable level 12/29 1136 2 Pain Assessment (RN/SCHOOL SECRETARY) 09/02 1136 Assessment 12/29 899 Assessment 12/29 05 Reassessment 12/30 423 Assessment Intervention 12/30 1135 Medication 12/29 899 Reposition;Relaxation 12/30 423 Medication;Reposition; Relaxation Most recent pain score: 3 CONSULT TO PAIN MANAGEMENT (AK,AV,EU,FV,CODY,MM,SP) Consult performed by: Myke Harvey Consult ordered by: Aracely Childress Reason for consult: Epidural Blood Patch Assessment/Recommendat ions: iStatus post LP under fluoroscopy. Service Requesting Consult: Neurosurgery/Spine Opinion/Advice Regarding: Epidural Blood Patch s/p LP under fluoroscopy. Subjective Chief Complaint: Acute Interval HPI Location of Pain: Head Pain At Rest: 8, Pain Ambulation: 10 Pain Character: Sharp, Stabbing, Shooting and Throbbing Pain Duration: Does not go away Pain Exacerbated By: sitting and standing Pain Relieved By: Lying down Pain Onset: Varies YARD MANAGER Patient on IV YARD MANAGER?: No , Block Candidate for Pre-Op Block?: Yes Anticipated Block Type: Epidural blood patch Block Laterality: Trunk Plan Analgesic options via: Epidural Blood Patch. Plan Discussed With: Caregiver, family and patient Patient status post LP under fluoroscopy being consulted to APMS for epidural blood patch. Epidural blood patch performed in PACU (see procedure note). Headache resolved. Educated Patient on lying flat for at least 2 hours and minimizing heavy lifting over 5 pounds and to avoid straining and bending over. APMS will sign-off at this time. Appreciate the consult. APS Progress Note ROS Sensory / Motor Exam Affect: alert, oriented to person, place, and time, awake, General Appearance: appears uncomfortable, Surgical Limb LUE: sensation intact RUE: sensation intact LLE: sensation intact RLE: sensation intact Non-Surgical Limb LUE: sensation intact RUE: sensation intact LLE: sensation intact RLE: sensation intact Trunk Abdomen: sensation intact Back: sensation intact Palpitation of abdomen: soft BP 117/59 Pulse 73 Temp 36.9 ?C (98.4 ?F) (Oral) Resp 13 Ht 160 cm (5' 3 ) Wt 63.1 kg (139 lb 3.2 oz) SpO2 100% BMI 24.66 kg/m? No intake or output data in the 24 hours ending 12/30/19 1435 Current Facility-Administered Medications Medication Dose Route Frequency - acetaZOLAMIDE 250 mg tab(s) (DIAMOX) 250 mg ORAL BID - sodium chloride 0.9 % (flush) 3-5 mL (BD POSIFLUSH) 3-5 mL INTRAVENOUS q 12 H - sodium chloride 0.9 % (flush) 2-10 mL (BD POSIFLUSH) 2-10 mL INTRAVENOUS q 12 H - ondansetron 4 mg tab(s) (ZOFRAN) 4 mg ORAL q 6 H PRN Or - ondansetron (PF) 4 mg injection (ZOFRAN) 4 mg INTRAVENOUS q 6 H PRN - acetaminophen 650 mg tab(s) (TYLENOL) 650 mg ORAL q 6 H PRN - acetaminophen 325 mg-caffeine 40 mg-butalbital 50 mg 1 tablet (FIORICET) 1 tablet ORAL q 6 H PRN - NaCl 0.9% iv infusion 75 mL/hr INTRAVENOUS CONTINUOUS ALLERGIES Allergen Reactions - Dilaudid [Hydromorp* Intolerance Pt had Nausea /Vomitinglasted 2 days Lab Results: PT Sec 11.6 12/28/2019 PT INR 1.1 12/28/2019 Hemoglobin 13.6 12/30/2019 Hematocrit 39.5 12/30/2019 Platelet Count 231 12/30/2019 Problem List: *Headache after spinal puncture (12/30/2019) History of Chiari malformation (12/30/2019) Leukocytosis (12/30/2019) Status post placement of ureteral stent (12/30/2019) Kidney stone (12/30/2019) No past medical history on file. No past surgical history on file. FAMILY HISTORY Problem Relation Age of Onset - No Ocular Disease No Family History Social History Tobacco Use - Smoking status: Never Smoker - Smokeless tobacco: Never Used Substance Use Topics - Alcohol use: Never Frequency: Never - Drug use: Not on file Comment: not asked SIGNATURE: Myke Harvey DO DATE: December 30, 2019 TIME: 2:35 PM Pili Cid RN, RN 12/31/2019 4:58 AM Signed Nursing Progress Note Patient Name: Ivette Lopes [id number] __ Daily Note:Pt alert, oriented x3, went for MRI Cervical AND Thoracic Spine, with recommendation to repeat . Medicated with Fioricet for headache at 2340 Hrs. Pt continued on IVF NS 75ml/hr. Maintained on Tele with SR/ST. Reinforced use of call light. Would monitor. This note was completed by: JACQUELIN Dodge Tech RedLasso 12/30/2019 10:08 PM Signed Radiology Service Progress Note PATIENT NAME: Ivette Lopes DATE OF SERVICE: December 30, 2019 TIME: 10:07 PM PATIENT IDENTITY VERIFICATION COMPLETED USING TWO (2) IDENTIFIERS: Name and Date of confirmed by patient verbally and Name and Date of confirmed by identification band. FALL SCREENING: Has the patient had 2 falls in the last year or 1 fall with injury or currently using an Ambulatory Assistive Device (Walker, Cane, Wheelchair, Crutches, etc.)? Inpatient: Screened on floor PATIENT GENDER DATA: Female. status: : No status: NO. PATIENT RELEVANT IMPLANT DATA REVIEWED: Yes RADIOLOGY DEPARTMENT: MR; Exam(s) Completed: Spine: Cervical spine, Thoracic spine and cine PERIPHERAL IV DATA: Not applicable SIGNED BY: Arthur Arriaga December 30, 2019 10:07 PM Kristen Flores RN, RN 12/31/2019 8:56 AM Signed Nursing Progress Note Patient Name: Ivette Lopes Patient Location: [id number]-5966/[address]-0 525-01 __ Daily Note:0800 Pt is AANDOX3. C/O AMAYA 07/06. Up with SBA. Steady gait. Tolerated clear liquids well. No N/V. Pt remains safe. Continue care plan. This note was completed by: Kristen Flores, JACQUELIN Caldwell MD 12/31/2019 11:23 AM Signed [facility] PROGRESS NOTE Name: vIette Lopes SERVICE DATE: 12/31/2019 SERVICE TIME: 11:20 AM Hospital Medicine/Primary Attending: Krystyna Caldwell MD ASSESSMENT AND PLAN Patient Active Hospital Problem List: 1. Headache after spinal puncture 2. History of Chiari malformation POA: Yes 3. Leukocytosis POA: Yes LP headache improved with blood patch - headache from her chiari malformation/benign intracranial hypertension back - trial of headache cocktail - MRI of Cervical spin/thoracic spine with normal flow, no acute findings. Will review results with Dr. Coronel's team. 4. Status post placement of ureteral stent POA: Yes 5. Kidney stone POA: Yes No inpatient management Krystyna Caldwell MD SUBJECTIVE INTERVAL HPI: Pt states headache from LP is improved. Able to get up and move around without increased headache now. However, pt started to get severe headache when she went to lay down for her MRI. It is typical for her headaches that she usually gets. It has not really improved overnight. MEDICATIONS: Reviewed OBJECTIVE PHYSICAL EXAM: BP 108/59 Pulse 69 Temp (Src) 98.5 (Oral) Resp 18 Ht 5' 3 (1.60m) Wt 139 lb 3.2 oz (63.1kg) SpO2 100% BMI 24.66 kg/(m2). O2 Therapy: Room Air GENERAL: alert, no distress, cooperative LUNGS: Lungs clear to auscultation. Good diaphragmatic excursion. CARDIAC: normal S1 and S2; no rubs, murmurs, or gallops ABDOMEN: Abdomen soft, non-tender. BS normal. No masses or organomegaly. EXTREMITIES: Extremities normal. No deformities, edema, clubbing or skin discoloration., No ulcers NEURO: Reflexes normal and symmetric. Sensation grossly intact., Cranial nerves II-XII intact PULSES: 2+ radial, 2+ carotid DATA: Diagnostic tests reviewed for today's visit: Most recent labs VTE Prophylaxis: Early Ambulation Disposition: Home Plan of care discussed with: Patient SIGNATURE: Krystyna Caldwell MD DATE: December 31, 2019 TIME: 11:20 AM Nakia Chairez, RN, RN 01/01/2020 12:09 AM Signed Nursing Progress Note Patient Name: Ivette Lopes Patient Location: [address]-5[address]- 525- __ Daily Note:Pt resting in bed C/o headache pain. Adm headache cocktail as ordered. Resp even and unalbored. 0 distress noted. Will cont to monitor. This note was completed by: Nakia Chairez, RN Desean Seymour, RN, RN 01/01/2020 2:12 PM Addendum Nursing Progress Note Patient Name: Ivette Lopes Patient Location: [id number]/DU- 525- __ Daily Note: 0845-Pt assessment complete. Pt AANDOX3. Pt denies CP,SOB,NANDV,numbness, tingling, or dizziness. Pt states she continues to have a constant headache. Pt requests to be given her MRI results. My safety plan discussed, pt verbalizes understanding. Pt updated on POC. Call light in reach. Continuous telemetry applied. 1400-This RN spoke with Dr. Gardiner, discussed POC. 1408-Dr. Quinones at bedside. This note was completed by: Desean Seymour RN Previous Version Jenaro Gardiner DO 01/01/2020 12:51 PM Signed ROU PROGRESS NOTE Name: Ivette Lopes SERVICE DATE: 01/01/2020 SERVICE TIME: 12:48 PM Hospital Medicine/Primary Attending: Jenaro Gardiner DO ASSESSMENT AND PLAN *Headache after spinal puncture (12/30/2019): blood patch placed. Initially it helped her headache. Her headache worsened after lying flat in the MRI scanner. No relief over the past 24 hours. History of Chiari malformation (12/30/2019): consult Dr Coronel. Leukocytosis (12/30/2019): repeat CBC. Status post placement of ureteral stent (12/30/2019): patient was scheduled to have the ureteral stent removed yesterday but she was unable to have it done because she was in the hospital. SUBJECTIVE INTERVAL HPI: I don't feel any better. MEDICATIONS: Reviewed OBJECTIVE PHYSICAL EXAM: BP 117/63 Pulse 87 Temp (Src) 98.6 (Oral) Resp 16 Ht 5' 3 (1.60m) Wt 139 lb 3.2 oz (63.1kg) SpO2 99% BMI 24.66 kg/(m2). O2 Therapy: Room Air GENERAL: alert, no distress SKIN: No acute rashes LUNGS: CARDIAC: ABDOMEN: Abdomen soft, non-tender. BS normal. No masses or organomegaly. EXTREMITIES: Extremities normal. No deformities, edema, clubbing or skin discoloration. NEURO: Grossly normal cognition, motor function, and cranial nerves III-XII DATA: Diagnostic tests reviewed for today's visit: Most recent labs Most recent imaging VTE Prophylaxis: Early Ambulation Disposition: Home Plan of care discussed with: Patient and RN SIGNATURE: Jenaro Gardiner DO DATE: January 01, 2020 TIME: 12:48 PM Myriam Greenfield PA-C 01/01/2020 2:05 PM Cosign Needed NEUROSURGERY INPATIENT CONSULT SERVICE DATE: 01/01/2020 SERVICE TIME: 1400 PCP: Aracely Slater, TECHNICAL PROFESSIONAL Consultation requested by Edgar Patiño MD [address] [address] for an opinion regarding the evaluation and treatment of headache. My final impression and recommendations will be communicated back to the requesting physician by way of the shared medical record or letter via US mail. SUBJECTIVE Ivette Lopes is a 24 year old female presenting with significant other CHIEF COMPLAINT:headache HISTORY OF PRESENT ILLNESS PRECIPITATING EVENT: LP Headache for years. After recent LP she developed low pressure AMAYA Was transferred here from OSH for blood patch Initially improved after blood patch Then after MRI AMAYA returned Throbbing over occipital and frontal lobes constantly now She feels like she is going to pass out when she stands up Caffeine occasionally helps her headaches, but has not tried it this admission Denies numbness/tingling No diplopia or blurred vision PAIN EVALUATION 12/30/2019 0424 12/30/2019 0900 12/30/2019 1136 12/31/2019 0558 12/31/2019 0806 Pain Level: 10 5 6 6 3 Pain Location: Head Back-Upper Back-Upper Head Head Description: Aching Pressure Pressure Throbbing Throbbing Intervention: Medication;Reposition; Relaxation Reposition;Relaxation Medication Medication;Reposition; Relaxation Cold 12/31/2019 1007 12/31/2019 1045 12/31/2019 1442 12/31/2019 2357 01/01/2020 0004 Pain Level: 5 4 7 7 6 Pain Location: Head Head Head Head Head Description: Aching Aching Aching Throbbing Throbbing Intervention: Medication Cold Medication Medication Medication 01/01/2020 0855 Pain Level: 5 Pain Location: Head Description: Aching Intervention: Medication;Reposition; Relaxation;Education AMBULATORY STATUS: Independent [facility] ANTIPLATELET OR ANTICOAGULATION STATUS: No PREVIOUS CONSERVATIVE TREATMENTS: Analgesics ACTIVE PROBLEM LIST Headache After Spinal Puncture History of Chiari Malformation Leukocytosis Status Post Placement of Ureteral Stent Kidney Stone No past medical history on file. No past surgical history on file. FAMILY HISTORY Problem Relation Age of Onset - No Ocular Disease No Family History Social History Tobacco Use - Smoking status: Never Smoker - Smokeless tobacco: Never Used Substance Use Topics - Alcohol use: Never Frequency: Never - Drug use: Not on file Comment: not asked ALLERGIES Allergen Reactions - Dilaudid [Hydromorp* Intolerance Pt had Nausea /Vomitinglasted 2 days MEDICATIONS: ondansetron orally disintegrating (ZOFRAN ODT) 4 mg disintegrating tablet Take 4 mg by mouth every 8 hours as needed. cephALEXin (KEFLEX) 500 mg capsule Take 500 mg by mouth once daily. acetaZOLAMIDE (DIAMOX) 250 mg tablet Take 1 tablet by mouth twice daily. oxybutynin ER (DITROPAN XL) 10 mg 24 hr tablet Take 10 mg by mouth once daily. ketorolac (TORADOL) 10 mg tablet Take 10 mg by mouth every 8 hours as needed. REVIEW OF SYSTEMS: PAIN ASSESSMENT: See HPI. GENERAL: Denies fever, chills malaise and weight loss. HEENT: No recent change in vision or hearing. CARDIOVASCULAR: Denies chest pain, history of A-fib, valvular disease, or pacemaker/ICD. RESPIRATORY: Denies SOB, sputum production, and hemoptysis. GI: Denies GI ulcers, inflammatory disease, or liver disease. : Denies change in frequency or urgency, kidney disease, and burning with urination. MUSCULOSKELETAL: Negative for joint pain or swelling, back pain or muscle pain. SKIN: Denies rash or itching. PSYCHOLOGICAL: Not reviewed NEURO: Headaches ENDOCRINE: Denies diabetes, thyroid disease. HEMATOLOGY/LYMPHOLOGY: Denies cancer, bleeding or clotting disorders, anemia,and DVT's. ALLERGIC/IMMUNOLOGICAL : Denies risks for infection, or recent MRSA infections. OBJECTIVE: PHYSICAL EXAM BP 117/63 Pulse 87 Temp 37 ?C (98.6 ?F) (Oral) Resp 16 Ht 160 cm (5' 3 ) Wt 63.1 kg (139 lb 3.2 oz) SpO2 99% BMI 24.66 kg/m? GENERAL APPEARANCE: Well nourished, well developed, and no apparent distress. NEURO PSYCH: Patient oriented to person, place, and time. Mood pleasant. Benign affect. MUSCULOSKELETAL VISUAL INSPECTION CERVICAL: WNL THORACIC: WNL LUMBAR: WNL MOTOR: 5/5 in all muscle groups. SENSORY: Normal sensory exam No swelling over lumbar spine NEURO TESTS: Cranial Nerves: Normal mood and affect. CNII-XII grossly intact. No dysmetria DATA REVIEW [facility] records reviewed Imaging and outside records reviewed Images reviewed with the patient ASSESSMENT/PLAN IMPRESSION: Ivette Lopes is a 24 year old female who presented due to low pressure headaches following LP for blood patch. She has been seeing Dr. Coronel for tonsillar decent. Her workup has been negative for IIH. Her cervical cine flow demonstrated good flow anteriorly and posteriorly. Patient's father requested neurosurgery see her during admission. Will discuss possibility of second blood patch with anesthesia, if they are in agreement would recommend repeat blood patch Recommend resting/taking it easy for the next 2 weeks Lie flat with feet up to improve headaches Increase fluids Follow up with headache neurology for headache management; consult has been sent per LUIS ENRIQUE Lees Follow up with Dr. Coronel in 6 m with repeat MRI (03/03/20) This has been communicated to patient's father by Dr. Coronel over phone. We will sign off. SIGNATURE: Myriam Greenfield PA-C PATIENT NAME: Ivette Lopes DATE: January 01, 2020 TIME: 1:31 PM PAGER: Progress Notes (NEUROLOGICAL INSTITUTE[place] [place] 1:20 PM Signed Patient called; states that she had lumbar puncture yesterday; states about one hour ago she started having severe head pain, feels like her ears are blocked; she is very nauseated and having difficulty moving her neck; patient is in severe discomfort; requesting call back bob; ph. [phone] Jase Moore Pss 12/29/2019 1:55 PM Signed Patient's father called to say the patient was being taken to the hospital because she was experiencing intense pain. They were hoping to hear back from Dr. Coronel's office very soon. Bala Lees PA-C 12/29/2019 2:35 PM Signed Called number below. Pt is in ED. She is having severe amaya, n/v ears blocked. She had an LP yesterday OP of 11. No papilledema by ophth exam. Mom concerned because her chiari went from 4.4 mm to 6 mm. I explained that the two images really are not significantly changed. Measurements can vary based on who does them. I assured them I would have Dr. Coronel review everything to make sure that there is nothing more that he wants to Do prior to his appt with her. They appreciated the call. In the meantime I advised lying flat with feet elevated. Bala Lees PA-C 12/30/2019 11:23 AM S[address] Spoke with Dr. Coronel. Wanted to get additional MRI cervical with cine flow and mri thoracic. Have done prior to appt next week. Bala Lees PA-C 12/30/2019 12:00 PM Signed Called patient. She was transferred to [place]. Lying flat is good. Her back is hurting as well. I dw patient that dr. Coronel wants an MRI cervical with cine flow and thoracic. I messaged Dr. Caldwell to let her know this. Hopefully, she can have this done while she is in house. Deborah Lopez 01/01/2020 8:54 AM Signed Patient's father called very upset saying that patient was taken to per the office's yet no one has come seen her daughter. Daughter called dad saying that she was in a room all day and no one came to get her until she needed her IV changed because it was bleeding. He states that they thought they were getting ready for patient to have surgery so why has no one come to speak to them regarding that. He states that he wants someone to call him with an update on patient. He states that patient had the MRI that were ordered by Dr. Coronel. He states they are all concerned on the status of the patient. Patient's daughter, Jorge can be reached at [phone]. Bala Lees PA-C 01/01/2020 11:[address] Coronel called patient's father. She has early form of chiari. There is debate whether this needs treatment. IIh work up has been negative. Neg ophthalmology, negative LP OP 11, negative MRV. Mri cerv no syrinx, no syrinx in thoracic. 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 Cervical cine flow anterior and posterior good flow. Between 0-5mm descent, this is a variation of normal. Between 5-10mm there is question of whether she needs surgery. We don't think that she is in any danger, but she could be quite symptomatic. Would recommend headache relief from neurology, headache. Recommend f/u in 6 mos with MRI cervical with cine flow. This current admission was for blood patch s/p LP. She has had this done. Recommend that she take it easy x 2 weeks, lying flat and elevating feet. See headache neurology and f/u with Dr. Coronel in 6 mos. Bala Lees PA-C 01/01/2020 2:[address] Coronel called and spoke with patient on the phone. Explained what he explained to her father. She should follow up in 6 mos. She can see headache specialists. Normal [facility] IR LUMBAR PUNCTURE DIAGon IR LUMBAR PUNCTURE DIAG * * *Final Report* * * DATE OF EXAM: Dec 28 2019 2:45PM [facility] [id number] - IR LUMBAR PUNCTURE DIAG / PROCEDURE REASON: INTRACRANIAL HYPERTENTION * * * * Physician Interpretation * * * * PROCEDURE: Diagnostic Lumbar Puncture Under Fluoroscopic Guidance HISTORY: The patient is a 24 years year old Female who presented with history of Shakira I malformation and headaches concern for benign intracranial hypertension . Consent: The risks, benefits, treatment options, potential complications, equipment, and personnel to be involved were discussed (including the risks of radiation exposure, contrast and anesthesia administration) with the patient. All of her questions were answered and consent was obtained. The patient indicated she was willing to proceed. General: A) Medication Reconciliation: The patient's medications and allergies were reviewed in the electronic medical record and reconciled to the proposed procedure/treatment. B) Pre-Procedure Medications: Medication #1: None C) Positioning: The patient was placed Prone on the fluoroscopy table. D) The Lumbar dorsal soft tissues. were then sterile prepped and draped. E) Time Out: A time out was performed immediately prior to procedure start with the nursing, anesthesia and interventional team, correctly identifying the name, medical record number, procedure, anatomy (including marking of site and side), patient position, procedure consent form, relevant diagnostic and radiology test results, antibiotic administration, safety precautions, and procedure-specific equipment needs. F) Anesthesia Type: administration of local anesthesia. Local Anesthesia: 5 mL 1% Lidocaine G) Anesthesia Was Administered For A Total Of None. H) Patient Monitoring: I personally monitored the patient?s level of consciousness and physiological status throughout the procedure. TECHNIQUE/RESULT: A) Access Site: 22 gauge spinal needle from a left paramedian approach at the L3-L4 level. B) Counting reference: Lumbosacral junction. For the purposes of this report, L4-5 is considered the level of the iliac crest. C) Procedure Details: Using sterile procedure, local anesthesia was introduced to the skin and subcutaneous tissues as outlined above. Diagnostic LP Details: Under fluoroscopic guidance, the needle was carefully advanced into the lumbar subarachnoid space resulting in free flow of CSF. Opening pressure was recorded at 11 cm H2O CSF Color: Clear D) Estimated Blood Loss: 0 mL E) Type of Removed Specimens: None F) Number of Specimens: None Fluoroscopic Radiation Summary: Fluoroscopic guidance was performed in conjunction with the radiology tech. Plane A, Air Kerma: 1.0 mGy Dose Area Product (DAP): 1052.2 mGy*cm2 Fluoro time: 0:12 min: sec Post-Procedure: Conclusion: The patient was transferred to the Radiology Recovery Room in stable condition and observed for approximately 60 minutes. Immediate Complications: None. Delayed Complications (will be reported as an addendum to the original report): None apparent at this time Timeout Time and Procedure Start Time: 1438 Procedure End Time and Sign Out Time: 1442 IMPRESSION: TECHNICALLY SUCCESSFUL DIAGNOSTIC LUMBAR PUNCTURE. The procedure was performed by: Renetta Dodge APRN, CNP Mud Analysis Operator: ELI Transcribe Date/Time: Dec 28 2019 4:07P Dictated by : RENETTA DODGE CNP This examination was interpreted and the report reviewed and electronically signed by: RENETTA DODGE CNP on Dec 28 2019 4:10PM EST [id number] [facility] PT EDon 12-28-2019 PT ED HNO ID: [id number] Author: Niurka Fountain) JACQUELIN Kuhn Service: Radiology Author Type: Registered Nurse Type: Patient Education Filed: 12/28/2019 2:37 PM Note Text: AMBULATORY PATIENT EDUCATION TOPIC: procedure: lumbar puncture READINESS TO LEARN COGNITIVE ABILITY: Alert and oriented MOTIVATION TO LEARN: Eager FAMILY SUPPORT: Unable to assess - Family not present INSTRUCTION PROVIDED TO: Patient PATIENT LEARNS BEST BY: Individual Instruction Verbal Instruction FACTORS AFFECTING LEARNING: None PHYSICAL LIMITATIONS AFFECTING LEARNING: None LEARNING RESPONSE DIAGNOSIS: diagnostic lumbar puncture METHOD OF INSTRUCTION: Individual instruction Verbal instruction PATIENT / FAMILY RESPONSE: Verbalizes understanding of: POST-PROCEDURE INSTRUCTIONS-Correct actions to take to reduce post procedure complications PRE-PROCEDURE INSTRUCTIONS-Correct action to take to follow pre-procedure instructions FOLLOW-UP PLAN: Patient instructed to call with any further issues Follow-up with Primary Care Contact information given. SUPPLEMENTAL MATERIAL: Title of written material: after a lumbar puncture in the imaging institute REFERRAL (RECOMMENDATION): None Electronically Signed By: Niurka Kuhn RN In Department: [facility] INTERVENTIONAL RADIOLOGY [facility] 12-25-2019 JOSHUA Telephone (IRRFV) IVETTE LOPES ([id number]) 1995 F Date Time Provider Department 12/25/19 ROSITA MÁRQUEZ (TECH) IRRFV During your visit today, we recorded the following information about you: Allergies As of Date: 12/25/2019 (No Known Allergies) Date Reviewed: 12/22/2019 Reviewed by: Daniel K Vaughn - Fully Assessed Reason for Visit: Reminder Call [[id number]] Cmt: called and gave reminder for patient's upcoming Lumbar Puncture. Patient verbalzied understanding of all instructions. Prescriptions as of 12/25/2019 Sig: ONDANSETRON 4 MG DISINTEGRATI* Take 4 mg by mouth every 8 ho* OXYBUTYNIN CHLORIDE ER 10 MG * Take 10 mg by mouth once maury* KETOROLAC 10 MG TABLET Take 10 mg by mouth every 8 h* CEPHALEXIN 500 MG CAPSULE Take 500 mg by mouth once abril* ACETAZOLAMIDE 250 MG TABLET Take 1 tablet by mouth twice * Problem List As Of Date: 12/25/2019 (None) Encounter Status:Closed by ROSITA NUÑEZ on 12/25/19 [facility] Krissy 12-24-2019 CNPN Telephone (NEADFV) IVETTE LOPES ([id number]) 1995 F Date Time Provider Department 12/24/19 BALA LEES) NEADFV During your visit today, we recorded the following information about you: Randa Branham Blanca 12/24/2019 10:28 AM Signed Patient is scheduled to have the MRV today at 5:20PM at [facility]. Patient states that she has not been able to work yesterday or today due to the pressure being so high. States that is getting the medicine to bring the pressure down, and is a little better, but still unable to go to work today. Wonders if she can get a note to have yesterday and today off, she is around the main campus today and can stop by to pick it up. Randa Branham Blanca Lees PA-C 12/24/2019 11:48 AM Signed We can write a letter keeping her off yesterday, today and the rest of the week. I have drafted a letter. If she can crab picker on S70 today that would be great. Ariana Smith RN, RN 12/24/2019 12:09 PM Signed Neuro SPINE CARE COORDINATION QUICK NOTE LVM for patient re: letter. Printed and placed on S70 for pickup and released to pts my chart. Ariana Simth RN Allergies As of Date: 12/24/2019 (No Known Allergies) Date Reviewed: 12/22/2019 Reviewed by: Daniel Vaughn - Fully Assessed Reason for Visit: Patient Update [1234] Prescriptions as of 12/24/2019 Sig: X ONDANSETRON 4 MG DISINTEGRATI* Take 4 mg by mouth every 8 ho* X OXYBUTYNIN CHLORIDE ER 10 MG * Take 10 mg by mouth once maury* X KETOROLAC 10 MG TABLET Take 10 mg by mouth every 8 h* X CEPHALEXIN 500 MG CAPSULE Take 500 mg by mouth once abril* X ACETAZOLAMIDE 250 MG TABLET Take 1 tablet by mouth twice * Problem List As Of Date: 12/24/2019 (None) Letter Text Encounter Status:Closed by RANDA GILLILAND on 01/26/20 [facility] CNPNon 12-23-2019 CNPN Telephone (IRRFV) IVETTE LOPES ([id number]) 1995 F Date Time Provider Department 12/23/19 ROSITA MÁRQUEZ (TECH) IRRFV During your visit today, we recorded the following information about you: Allergies As of Date: 12/23/2019 (No Known Allergies) Date Reviewed: 12/22/2019 Reviewed by: Daniel Vaughn - Fully Assessed Reason for Visit: Appointment [[id number]] Cmt: attempted to reach patient multiple times to discuss arrivial time for her lumbar puncture. No answer, unable to leave voicemail due to box being full. Prescriptions as of 12/23/2019 Sig: ONDANSETRON 4 MG DISINTEGRATI* Take 4 mg by mouth every 8 ho* OXYBUTYNIN CHLORIDE ER 10 MG * Take 10 mg by mouth once maury* KETOROLAC 10 MG TABLET Take 10 mg by mouth every 8 h* CEPHALEXIN 500 MG CAPSULE Take 500 mg by mouth once abril* ACETAZOLAMIDE 250 MG TABLET Take 1 tablet by mouth twice * Problem List As Of Date: 12/23/2019 (None) Encounter Status:Closed by [facility] (NSFRVW ) IVETTE LOPES ([id number]) 1995 F Date Time Provider Department 12/22/19 11:50 AM BALA LEES) NSFRVW During your visit today, we recorded the following information about you: Temperature Pulse Respiration Blood pressure 97.8 degrees 74/minute 16/minute 119/75 Weight 65.8 kg Bala Lees PA-C 12/22/2019 12:32 PM Addendum This note was created using StepOneriter. Subjective Ivette Lopes is a 24 year old female here for evaluation of head pain, eye pain, visual disturbances and chiari malformation. Pt is c/o issues for over a year. She feels that it is unbearable. She has nausea with some vomiting. Pressure in the back of the throat, weight hanging from back of the head forcing it down . She has this from the time she wakes up till she goes to bed. She has black spots and blurry vision. She has not been to the interactive media director. She has severe eye pain. She has tried imitrex, fioricet, diclofenac, tizanidine. Tylenol, motrin and zofran. Nothing is helping the pain. Lights, sleeping flat makes it worse. She feels like she has to keep moving, she can not lay flat. Review of Systems Constitutional: Negative for fatigue and fever. HENT: Positive for trouble swallowing. Negative for tinnitus. Eyes: Positive for pain and visual disturbance. Respiratory: Negative for cough and wheezing. Cardiovascular: Positive for chest pain. Negative for leg swelling. Gastrointestinal: Positive for nausea and vomiting. Endocrine: Positive for heat intolerance. Negative for cold intolerance. Genitourinary: Positive for frequency and urgency. Musculoskeletal: Positive for neck pain. Negative for gait problem. Allergic/Immunologic: Negative for environmental allergies and food allergies. Neurological: Positive for dizziness and headaches. Psychiatric/Behavioral : Negative for dysphoric mood. The patient is not nervous/anxious. Objective BP 119/75 Pulse 74 Temp 36.6 ?C (97.8 ?F) Resp 16 Wt 65.8 kg (145 lb) Physical Exam Constitutional: Appearance: Normal appearance. She is normal weight. HENT: Head: Normocephalic and atraumatic. Eyes: Extraocular Movements: Extraocular movements intact. Conjunctiva/sclera: Conjunctivae normal. Pulmonary: Effort: Pulmonary effort is normal. No respiratory distress. Skin: General: Skin is warm and dry. Neurological: General: No focal deficit present. Mental Status: She is alert and oriented to person, place, and time. GCS: GCS eye subscore is 4. GCS verbal subscore is 5. GCS motor subscore is 6. Motor: Motor function is intact. No weakness or pronator drift. Coordination: Romberg sign negative. Coordination normal. Gait: Gait and tandem walk normal. Psychiatric: Mood and Affect: Mood normal. Behavior: Behavior normal. Assessment and Plan Severe debilitating headaches and pressure Visual blackouts N/v. MRI shows 4.5 mm tonsillar descent Imaging and report reviewed CT reviewed Small ventricles Tried multiple medications with no improvement. Symptoms worsening. Recommend stat IR LP for OP Ophthalmology advised to try to get same day appt. MRV to evaluate for venous stenosis Diamox 250mg BID Pt is on toradol. May not be able to have LP until off toradol. Recommend First available appt with Dr. Coronel after work up complete. Pt understood. Referring Provider: ARACELY SLATER [[id number]] Allergies As of Date: 12/22/2019 (No Known Allergies) Date Reviewed: 12/22/2019 Reviewed by: Domingo Valentin Ma - Fully Assessed Reason for Visit: New Patient [172] Primary Visit Diagnosis:Chiari malformation type I (HCC) [G93.5] Other Visit Diagnosis:Benign intracranial hypertension [G93.2] Order(s):IR LP FOR DRAINAGE (PRESSURE) [6425857] Order #: [id number] MRV BRAIN WO IVCON [6722618] Order #: [id number] FUTURE CONSULT TO OPHTHALMOLOGY [9024] Order #: [id number]: 1 FUTURE acetaZOLAMIDE (DIAMOX) 250 mg tabletTake 1 tablet by mouth twice daily.Disp: 60 tabletRfl: 1 PRE-PROCEDURE AND PRE-OPERATIVE COVID [SQPOCOVD] Order #: [id number] FUTURE CBC [SQCBC] Order #: [id number] FUTURE BASIC METABOLIC PNL [SQBMP] Order #: [id number] FUTURE PROTHROMBIN TIME/PT [SQPT] Order #: [id number] FUTURE Prescriptions as of 12/22/2019 Sig: ONDANSETRON 4 MG DISINTEGRATI* Take 4 mg by mouth every 8 ho* OXYBUTYNIN CHLORIDE ER 10 MG * Take 10 mg by mouth once maury* KETOROLAC 10 MG TABLET Take 10 mg by mouth every 8 h* CEPHALEXIN 500 MG CAPSULE Take 500 mg by mouth once abril* ACETAZOLAMIDE 250 MG TABLET Take 1 tablet by mouth twice * Problem List As Of Date: 12/22/2019 (None) Prescriptions ordered this encounter Disp Refills Start End ACETAZOLAMIDE 250 MG TABLET 60 t* 1 12/22/2019 Route: ORAL Sig: Take 1 tablet by mouth twice daily. Follow-up and Disposition History Recorded Encounter Status:Closed by BALA LEES PA-C on 12/22/19 [facility] HOSPon 12-22-2019 HOSP Patient:Esteban Lopes en MRN: Height:No patient height recorded for this patient. Weight:145 lb (65.772 kg) Outpatient Medications as of 12/28/19: ondansetron orally disintegrating (ZOFRAN ODT) 4 mg disintegrating tablet oxybutynin ER (DITROPAN XL) 10 mg 24 hr tablet ketorolac (TORADOL) 10 mg tablet cephALEXin (KEFLEX) 500 mg capsule acetaZOLAMIDE (DIAMOX) 250 mg tablet Admission/Clinic Administered Medications as of 12/28/19: Patient has no admission medications. Problem List: No problem list on file for this patient. Allergies: No Known Allergies Date Verified:12/28/19 Lab Values Lab Value Units Date High Low POTA* 3.9 mmol/L 12/28/2019 5.0 3.5 KEYLA* 42.4 % 12/28/2019 46.0 36.0 Progress Notes (NEUR ADULT FRVW): Randarashawn Rios 12/24/2019 10:28 AM Signed Patient is scheduled to have the MRV today at 5:20PM at the main campus. Patient states that she has not been able to work yesterday or today due to the pressure being so high. States that is getting the medicine to bring the pressure down, and is a little better, but still unable to go to work today. Wonders if she can get a note to have yesterday and today off, she is around the main campus today and can stop by to pick it up. Randa Lees PA-C 12/24/2019 11:48 AM Signed We can write a letter keeping her off yesterday, today and the rest of the week. I have drafted a letter. If she can crab picker on S70 today that would be great. Ariana Smith RN, RN 12/24/2019 12:09 PM Signed Neuro SPINE CARE COORDINATION QUICK NOTE LVM for patient re: letter. Printed and placed on S70 for pickup and released to pts my chart. Ariana Smith RN Progress Notes (RADIO MRI MAIN Q): Arthur Uribe RedLasso 12/24/2019 5:58 PM Signed Radiology Service Progress Note PATIENT NAME: Ivette Lopes DATE OF SERVICE: December 24, 2019 TIME: 5:58 PM PATIENT IDENTITY VERIFICATION COMPLETED USING TWO (2) IDENTIFIERS: Name and Date of confirmed by patient verbally and Name and Date of confirmed by identification band. FALL SCREENING: Has the patient had 2 falls in the last year or 1 fall with injury or currently using an Ambulatory Assistive Device (Walker, Cane, Wheelchair, Crutches, etc.)? No PATIENT GENDER DATA: Female. status: : No status: NO. PATIENT RELEVANT IMPLANT DATA REVIEWED: Yes RADIOLOGY DEPARTMENT: MR; Exam(s) Completed: Head: Sagittal Sinus MRV PERIPHERAL IV DATA: Not applicable SIGNED BY: Arthur Uribe December 24, 2019 5:58 PM [facility] PROGRESSon 12-22-2019 PROGRESS HNO ID: [id number] Author: Bala Meadows) Nabeel Service: ? Author Type: Physician Belly Roller Type: Progress Notes Filed: 12/22/2019 12:32 PM Note Text: This note was created using StepOneriter. Subjective Ivette Lopes is a 24 year old female here for evaluation of head pain, eye pain, visual disturbances and chiari malformation. Pt is c/o issues for over a year. She feels that it is unbearable. She has nausea with some vomiting. Pressure in the back of the throat, weight hanging from back of the head forcing it down . She has this from the time she wakes up till she goes to bed. She has black spots and blurry vision. She has not been to the interactive media director. She has severe eye pain. She has tried imitrex, fioricet, diclofenac, tizanidine. Tylenol, motrin and zofran. Nothing is helping the pain. Lights, sleeping flat makes it worse. She feels like she has to keep moving, she can not lay flat. Review of Systems Constitutional: Negative for fatigue and fever. HENT: Positive for trouble swallowing. Negative for tinnitus. Eyes: Positive for pain and visual disturbance. Respiratory: Negative for cough and wheezing. Cardiovascular: Positive for chest pain. Negative for leg swelling. Gastrointestinal: Positive for nausea and vomiting. Endocrine: Positive for heat intolerance. Negative for cold intolerance. Genitourinary: Positive for frequency and urgency. Musculoskeletal: Positive for neck pain. Negative for gait problem. Allergic/Immunologic: Negative for environmental allergies and food allergies. Neurological: Positive for dizziness and headaches. Psychiatric/Behavioral : Negative for dysphoric mood. The patient is not nervous/anxious. Objective BP 119/75 Pulse 74 Temp 36.6 ?C (97.8 ?F) Resp 16 Wt 65.8 kg (145 lb) Physical Exam Constitutional: Appearance: Normal appearance. She is normal weight. HENT: Head: Normocephalic and atraumatic. Eyes: Extraocular Movements: Extraocular movements intact. Conjunctiva/sclera: Conjunctivae normal. Pulmonary: Effort: Pulmonary effort is normal. No respiratory distress. Skin: General: Skin is warm and dry. Neurological: General: No focal deficit present. Mental Status: She is alert and oriented to person, place, and time. GCS: GCS eye subscore is 4. GCS verbal subscore is 5. GCS motor subscore is 6. Motor: Motor function is intact. No weakness or pronator drift. Coordination: Romberg sign negative. Coordination normal. Gait: Gait and tandem walk normal. Psychiatric: Mood and Affect: Mood normal. Behavior: Behavior normal. Assessment and Plan Severe debilitating headaches and pressure Visual blackouts N/v. MRI shows 4.5 mm tonsillar descent Imaging and report reviewed CT reviewed Small ventricles Tried multiple medications with no improvement. Symptoms worsening. Recommend stat IR LP for OP Ophthalmology advised to try to get same day appt. MRV to evaluate for venous stenosis Diamox 250mg BID Pt is on toradol. May not be able to have LP until off toradol. Recommend First available appt with Dr. Coronel after work up complete. Pt understood. Normal [facility] Consultation Noteon 12-18-19 Consultation Note [id number] Normal [facility] Insurance Correspondence Off iceon 12-18-2019 Insurance Correspondence Office [id number] 0CD:127 Normal [facility] Operative Reporton 0 Operative Report [id number] 0CD:127 Normal [facility] Ambulatory Clinical Summaryo n 12-11-2019 Ambulatory Clinical Summary {[id number] Normal [facility] Patient Educationon 12-11-19 Patient Education Family Medicine Kidney Stones Kidney stones (ureteral lithiasis ) are solid masses that form inside your kidneys. The intense pain is caused by the stone moving through the kidney, ureter, bladder, and urethra (urinary tract ). When the stone moves, the ureter starts to spasm around the stone. The stone is usually passed in the urine. HOME CARE ? Drink enough fluids to keep your pee (urine ) clear or pale yellow. This helps to get the stone out. ? Strain all pee through the provided strainer. Do not pee without peeing through the strainer, not even once. If you pee the stone out, catch it. The stone may be as small as a grain of salt. Take this to your doctor. ? Only take medicine as told by your doctor. ? Follow up with your doctor as told. ? Get follow-up X-rays as told by your doctor. GET HELP RIGHT AWAY IF: ? Your pain does not get better with medicine. ? You have a fever. ? Your pain increases and gets worse over 18 hours. ? You have new belly (abdominal ) pain. ? You feel faint or pass out. MAKE SURE YOU: ? Understand these instructions. ? Will watch your condition. ? Will get help right away if you are not doing well or get worse. Document Released: 10/01/2008 Document Revised: 07/07/2012 Document Reviewed: 02/10/2010 ExitCare? Patient Information ?2013 [employer] [facility] Urology Office/Clinic Noteon 12-11-2019 Urology Office/Clinic Note Chief Complaint New Patient/Referral per CHERISE Mar and Dr. Sawyer , F/U to [facility] due to rt 2mm,4mm w/ hydronephrosis HPI Staff New patient/ Referral per CHERISE Slater, Dr. Sawyer due to rt 2 mm-4mm w/ hydronephrosis, F/U to [facility] w/ KUB, CT scan done on 12/04/2019, Lab work done on 12/08/2019, PVR 285 mL Dysuria: yes pt states ongoing since Saturday Incomplete bladder emptying: yes Hematuria: no UA shows Trace-intact Frequency: no mild intermittent pt states 5 times per Urgency: no Nocturia: no pt states up to once per night sometimes Stream: pt admits to hesitancy/ denies stop and go with a varied stream Leaking: no Post void dripping: no Wearing pads/ Depends: no Urge incontinence: no Stress incontinence: no Abdominal pain: no Flank pain: no, not pt states not today, but it comes and goes, She states it is a sharp flaring pain with a pain scale 7-10/10 Sexual complaints: no History of Present Illness There have been no associated fever, chills, flank pain or blood in urine. Reviewed CT report, Lab report, ER report. Reviewed UA. Review of Systems PHQ Score Initial Depression Screen Score: 0 ROS - Provider Constitutional: denies weight loss, denies hot flashes. Eyes: denies eye problems. Gastrointestinal: denies nausea, denies vomiting. Cardiovascular: denies chest pain or angina. Integumentary: no dryness Musculoskeletal: denies musculoskeletal symptoms. ENMT: denies otolaryngeal symptoms. Respiratory: no shortness of breath. Heme/Lymph: denies easy bleeding tendency, denies easy bruising tendency. Psychiatric: no confusion, no anxiety. Genitourinary: denies vaginal discharge, denies incontinence, moderate dysuria, denies hematuria, denies urinary frequency, denies amenorrhea, denies menorrhagia, denies abnormal bleeding, denies pelvic pain, denies genital sores, and denies decreased libido. Physical Exam Vitals & Measurements HR: 77(Peripheral) RR: 16 BP: 134/92 HT: 160.0 cm HT: 160 cm WT: 67.4 kg WT: 67.4 kg BMI: 26.33 General Appearance: alert , no acute distress, well nourished, well developed female. Head: normocephalic . Eyes: normal orbit and globe. ENMT: normal examination of external ears. Chest: Lungs CTA, respirations non labored . Cardiovascular: regular rate and rhythm. Abdomen: soft, non distended, no tenderness, no mass or organomegaly, no hernia. Genitourinary: bladder nonpalpable, no flank tenderness. Lymph Nodes: unremarkable palpation of the cervical area. Skin: warm, dry, no bruising. Psychiatric: cooperative, affect appropriate for age, normal judgement, euthymic mood. Assessment/Plan This patient is a history of right-sided flank pain with a 4 mm right distal ureteral calculus and a 2 mm lower pole calculus again on the right side. She is been scheduled for cystoscopy with ureteroscopic stone extraction. Initially we will treat her with oral medications to hope that she can pass a stone and if not we will proceed with ureteroscopic stone extraction. Medications of been ordered that will include Toradol, Levsin SL and tamsulosin. 1. Hydronephrosis with ureteral calculus (N13.2: Hydronephrosis with renal and ureteral calculous obstruction) Ct scan report done 12/04/19 shows 4mm stone in Distal Right ureterovesical junction with moderate hydronephrosis. discussed with patient the risks and benefits of removing kidney stone. will schedule cysto, R RG, R ureteroscopy, poss R stent placement, patient will call if she passes her stone. Ordered: Cystourethroscopy [id number] 2. Kidney stone (N20.0: Calculus of kidney) Ct report shows 2mm stone in right kidney, non obstructing. Ordered: Cystourethroscopy [id number] 3. Dysuria (R30.0: Dysuria) mild to moderate, ongoing since Saturday. 4. Microscopic hematuria (R31.29: Other microscopic hematuria) UA today shows Trace-intact. 5. Flank pain (R10.9: Unspecified abdominal pain) Right side, moderate pain. Patient denies any pain today. Ordered: Cystourethroscopy [id number] Orders: hyoscyamine, 0.125 mg = 1 tab(s), Oral, q6hr, take 1 tablet as needed for spasms, # 20 tab(s), Refills(s) 1, [facility], 160, cm, 12/11/19 9:01:00 EDT, Height/Length Dosing, 67.4, kg, 12/11/19 8:44:00 EDT, Weight Dosing tamsulosin, 0.4 mg = 1 cap(s), Oral, Daily, # 10 cap(s), Refills(s) 1, Pharmacy: [facility], 160, cm, 12/11/19 9:01:00 EDT, Height/Length Dosing, 67.4, kg, 12/11/19 8:44:00 EDT, Weight Dosing PVR urine/bladder capacity/[place] 57735 Urnls Dip Stick Auto w/o Microscopy POC [id number] Follow-up With When Contact Information Haroon Jolley MD, Neel Welsh [facility] [address], [place] [address]- Additional Instructions: Patient Education Kidney Stones, [id number] Documentation recorded by the scribe, Jhoana Felix, accurately reflects the services(s) I performed and decisions made by me. Authenticated by Dr. Patiño on 12/11/2019 09:40:33. Problem List/Past Medical History Ongoing BMI 26.0-26.9,adult History of Chiari malformation Kidney stone Historical No qualifying data Procedure/Surgical History Adenoidectomy, Tonsillectomy. Medications Cipro, Oral, q12hr Flomax 0.4 mg Cap, Oral, Daily ketorolac 10 mg Tab, 10 mg= 1 tab(s), Oral, q4hr, PRN Percocet 5 mg-325 mg oral tablet, Oral, q6hr Zofran 4 mg Tab, Oral, q8hr Zyrtec-D, Oral, BID Allergies No Known Allergies Social History Tobacco Never (less than 100 in lifetime) Tobacco Use:. Never Smokeless Tobacco Use:., 12/11/2019 Family History Breast: Grandparent. Colon cancer: Grandparent. Hypertension: Sister. Migraine: Sister. Lab Results Ambulatory Point of Care Results Bilirubin Urine Dipstick: Negative (12/11/19 08:38:00) Blood Urine Dipstick: Trace-intact (12/11/19 08:38:00) Glucose Urine Dipstick: Trace 100 mg/dl (12/11/19 08:38:00) Ketones Urine Dipstick: Negative (12/11/19 08:38:00) Leukocytes Urine Dipstick: Negative (12/11/19 08:38:00) Nitrite Urine Dipstick: Negative (12/11/19 08:38:00) Protein Urine Dipstick: Negative (12/11/19 08:38:00) Specific [place] Urine Dipstick: 1.025 (12/11/19 08:38:00) Urine Appearance Urine Dipstick: Clear (12/11/19 08:38:00) Urine Color Urine Dipstick: Yellow (12/11/19 08:38:00) Urobilinogen Urine Dipstick: Normal 0.2-1 EU/dl (12/11/19 08:38:00) pH Urine Dipstick: 6 (12/11/19 08:38:00) Diagnostic Results Reviewed urinalysis showing no infection. Reviewed CT scan showing right distal ureteral calculus and right renal calculus. Normal [facility] Comment on above: Result Comment: Elec tronically Signed By: Haroon Jolley MD, Neel Welsh\.br\Date and Time Signed: 12/11/19 09:40 EDT\.br\Electronically Co-Signed By: Julieta Castorena\.br\Date and Time Co-Signed: 12/11/19 09:34 EDT OT-MRI BRAIN WO/W CON IMPORT on 10-12-2019 OT-MRI BRAIN WO/W CON IMPORT Images were obtained outside of [facility] [id number] [facility] CT-CT HEAD WO CON IMPORTon 0 10-01-2019 CT-CT HEAD WO CON IMPORT Images were obtained outside of [facility] [id number] Vital Signs Date Time Vital Sign Value Performing Clinician Facility 09-13-2023 09:52-0400 Body height 162.56 cm [facility] 09-13-2023 09:52-0400 Body mass index (BMI) [Ratio] 27.3 kg/m2 [facility] 09-13-2023 09:52-0400 Body temperature 97.8 [degF] [facility] 09-13-2023 09:52-0400 Body weight 72.34 kg [facility] 09-13-2023 09:52-0400 Diastolic blood pressure 78 mm[Hg] [facility] 09-13-2023 09:52-0400 Heart rate 101 /min [facility] 09-13-2023 09:52-0400 Respiratory rate 18 /min [facility] 09-13-2023 09:52-0400 SaO2% (BldA) [Mass fraction] 97 % [facility] 09-13-2023 09:52-0400 Systolic blood pressure 124 mm[Hg] [facility] 12-22-2019 11:23-0400 Body Temperature 97.81 [degF] Bala Lees [facility] 12-22-2019 11:23-0400 Body weight 65.77 kg Bala Lees [facility] 12-22-2019 11:23-0400 BP Diastolic 75 mm[Hg] Bala Lees [facility] 12-22-2019 11:23-0400 BP Systolic 119 mm[Hg] Bala Lees [facility] 12-22-2019 11:23-0400 Pulse (Heart Rate) 74 /min [facility] 12-22-2019 11:23-0400 Respiratory Rate 16 /min [facility] Encounters Encounter Date Encounter Type Care Provider Facility Start: 09-13-2023 End: 09-13-2023 ambulatory [facility] Work Phone: Start: 09-13-2023 End: 09-13-2023 Patient encounter procedure [facility] Valeriy Work Phone: Start: 06-13-2023 Refill Aracely Aichjustinz 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[employer] Work Phone: [facility] Comment on above: Cold sore (Primary D x) Start: 10-04-2021 End: 10-04-2021 ambulatory TECHNICAL PROFESSIONAL ARACELY AICHHOLZ Facility:[facility] Start: 04-11-2021 End: 04-11-2021 ambulatory TECHNICAL PROFESSIONAL ARACELY ROSALVA Facility:[facility] Start: 12-07-2020 End: 12-10-2020 ambulatory THOR ROWAN [facility] Start: 12-07-2020 End: 12-09-2020 Subsequent hospital visit by physician [facility] MRI Comment on above: Chiari I malformatio n (HCC) Start: 12-22-2019 End: 12-22-2019 Patient encounter procedure Bala Lees ([place]) Work Phone: Neurosurgery Comment on above: Chiari malformation type I (HCC) (Primary Dx); Benign intracranial hypertension Procedures Date Procedure Procedure Detail Performing Clinician Start: 09-13-2023 Quick Strep (POC) Start: 12-07-2020 Mri brain brain stem w/o contrast material Thor Rowan LOSS PREVENTION DETECTIVE - TECHNICAL PROFESSIONAL Work Phone: Plan of Treatment Date Care Activity Detail Author Start: 12-28-2020 Influenza vaccination Flu vaccine (# 1) [facility] Work Phone: Start: 12-16-2020 End: 12-16-2020 Patient encounter procedure 12/16/2020 Office Visit Neurosurgery Jacks, Thor W, LOSS PREVENTION DETECTIVE - TECHNICAL PROFESSIONAL [address] [facility] [address] [place] [address] [phone] [facility] Start: 12-29-2019 Influenza vaccination INFLUENZA (#1) [facility] Start: 2015 PAP TESTING PAP TESTING [facility] Start: 2015 Screening for malign ant neoplasm of cervix Cervical cancer screen [facility] Phone: Start: 2013 DTaP/Tdap/Td vaccine (2 - Tdap) DTaP/Tdap/Td vaccine (2 - Tdap) [facility] Phone: Start: 2013 Urine microalbumin profile DTAP,TDAP,TD (1 - Tdap) [facility] Start: 2012 HEPATITIS C SCREENING HEPATITIS C [facility] Start: 2012 HIV SCREENING HIV SCREENING [facility] Start: 2009 HIV screening HIV screen [facility] Work Phone: Start: 2006 COVID-19 Vaccine (1) COVID-19 Vaccin e (1) [facility] Phone: Start: 2005 HPV VACCINE (1 - 2-d ose series) HPV VACCINE (1 - 2-dose series) [facility] Start: 1995 Varicella vaccine (1 of 2 - 2-dose childhood series) Varicella vaccine (1 of 2 - 2-dose childhood series) [facility] Phone: Start: 1994 Hepatitis C screening Hepatitis C [facility] Phone: End: 12-21-2020 BASIC METABOLIC PNL BASIC METABOLIC PNL Lab Routine Benign intracranial hypertension 1 Occurrences starting 12/22/2019 until 12/21/2020 [facility] Comment on above: 1 Occurrences starti ng 12/22/2019 until 12/21/2020 End: 12-21-2020 CBC CBC Lab Routine Benign intracranial hypertension 1 Occurrences starting 12/22/2019 until 12/21/2020 [facility] Comment on above: 1 Occurrences starti ng 12/22/2019 until 12/21/2020 IR LP FOR DRAINAGE (PRESSURE) IR LP FOR DRAINAGE (PRESSURE) Radiology STAT Benign intracranial hypertension Ordered: 12/22/2019 [facility] Comment on above: Ordered: 12/22/2019 End: 01-20-2021 Mra head w/o contrst material MRV BRAIN WO IVCON Radiology Routine Benign intracranial hypertension 1 Occurrences starting 12/22/2019 until 01/20/2021 [facility] Comment on above: 1 Occurrences starti ng 12/22/2019 until 01/20/2021 End: 12-21-2020 PRE-PROCEDURE & PRE-OPERATIVE COVID PRE-PROCEDURE & PRE-OPERATIVE COVID Microbiology Routine Benign intracranial hypertension 1 Occurrences starting 12/22/2019 until 12/21/2020 [facility] Comment on above: 1 Occurrences starti ng 12/22/2019 until 12/21/2020 End: 12-21-2020 PROTHROMBIN TIME/PT PROTHROMBIN TIME/PT Lab Routine Benign intracranial hypertension 1 Occurrences starting 12/22/2019 until 12/21/2020 [facility] Comment on above: 1 Occurrences starti ng 12/22/2019 until 12/21/2020 [facility] Payers Date Payer Category Payer Unknown [employer] PPO [id number] 2019-Present PPO [id number] 1994 Unknown [id number] 1994 Unknown [id number] 1994 Unknown [id number] 1959 Unknown [id number] Medicaid [place] Ad[employer]age [id number] Social History Date Type Detail Facility Start: 12-22-2019 End: 09-13-2023 Tobacco smoking status NHIS Never smoker [facility] Start: 12-22-2019 End: 11-17-2020 Tobacco use and exposure Never used [facility] Start: 12-22-2019 Alcohol intake Lifetime non-d nancy (finding) [facility] Start: 12-22-2019 History SDOH Alcohol Frequency 1 [facility] Start: 1994 Sex Assigned At Not on file [facility] Exposure to SARS-CoV -2 (event) Not sure [facility] Start: 11-17-2020 Alcohol intake Current drinke r of alcohol (finding) [facility] Phone: Start: 09-14-2020 Alcohol Comment rarely [employer] Work Phone: Tobacco smoking stat us NHIS Tobacco smoking consumption unknown [facility] [employer] Gender identity Not on file [facility] are Start: 1994 Sex Assigned At Female F [facility] Evaluation note Note Date & Type Note Facility Evaluation note Diagnosis Chiari I malformation (HCC) Compression of brain documented in this encounter [facility] Phone: Evaluation note Note Date & Type Note Facility Evaluation note Diagnosis Cold sore- Primary Herpes simplex without mention of complication documented in this encounter [facility] Healthcare Evaluation note Note Date & Type Note Facility Evaluation note Diagnosis Onset Date Sore throat noneactive [facility] Work Phone: Reason for Referral Status Reason Specialty Diagnoses / Procedures Referred By Contact Referred To Contact Authorized PCP Requested Referral Ophthalmology Diagnoses Benign intracranial hypertension Procedures CONSULT TO OPHTHALMOLOGY NEW PATIENT VISIT LEVEL 5 Bala Lees (Luis Enrique) [address] [place] [address] Status Reason Specialty Diagnoses / Procedures Referred By Contact Referred To Contact Pending Review Auto-Generated Referral MR IMAGING Diagnoses Benign intracranial hypertension Procedures MRV BRAIN WO IVCON MRA, HEAD W/O CONTRAST Bala Lees) [address] [place] [address] Mr Imaging Status Reason Specialty Diagnoses / Procedures Referre d By Contact Referred To Contact Closed Radiology Diagnoses Chiari I malformation (HCC) Procedures MRI CSF FLOW STUDY Thor Rowan, LOSS PREVENTION DETECTIVE - TECHNICAL PROFESSIONAL [address] [facility] [address] [facility] [address] [place] [id number] History of Present Illness * Bala Lees (Luis Enrique) - 12/22/2019 11:47 AM EDT This note was created using [employer]. Subjective Ivette Lopes is a 24 year old female here for evaluation of head pain, eye pain, visual disturbances and chiari malformation. Pt is c/o issues for over a year. She feels that it is unbearable. She has nausea with some vomiting. Pressure in the back of the throat, weight hanging from back of the head forcing it down . She has this from the time she wakes up till she goes to bed. She has black spots and blurry vision. She has not been to the interactive media director. She has severe eye pain. She has tried imitrex, fioricet, diclofenac, tizanidine. Tylenol, motrin and zofran. Nothing is helping the pain. Lights, sleeping flat makes it worse. She feels like she has to keep moving, she can not lay flat. Review of Systems Constitutional: Negative for fatigue and fever. HENT: Positive for trouble swallowing. Negative for tinnitus. Eyes: Positive for pain and visual disturbance. Respiratory: Negative for cough and wheezing. Cardiovascular: Positive for chest pain. Negative for leg swelling. Gastrointestinal: Positive for nausea and vomiting. Endocrine: Positive for heat intolerance. Negative for cold intolerance. Genitourinary: Positive for frequency and urgency. Musculoskeletal: Positive for neck pain. Negative for gait problem. Allergic/Immunologic: Negative for environmental allergies and food allergies. Neurological: Positive for dizziness and headaches. Psychiatric/Behavioral: Negative for dysphoric mood. The patient is not nervous/anxious. Objective BP 119/75 Pulse 74 Temp 36.6 C (97.8 F) Resp 16 Wt 65.8 kg (145 lb) Physical Exam Constitutional: Appearance: Normal appearance. She is normal weight. HENT: Head: Normocephalic and atraumatic. Eyes: Extraocular Movements: Extraocular movements intact. Conjunctiva/sclera: Conjunctivae normal. Pulmonary: Effort: Pulmonary effort is normal. No respiratory distress. Skin: General: Skin is warm and dry. Neurological: General: No focal deficit present. Mental Status: She is alert and oriented to person, place, and time. GCS: GCS eye subscore is 4. GCS verbal subscore is 5. GCS motor subscore is 6. Motor: Motor function is intact. No weakness or pronator drift. Coordination: Romberg sign negative. Coordination normal. Gait: Gait and tandem walk normal. Psychiatric: Mood and Affect: Mood normal. Behavior: Behavior normal. Assessment and Plan Severe debilitating headaches and pressure Visual blackouts N/v. MRI shows 4.5 mm tonsillar descent Imaging and report reviewed CT reviewed Small ventricles Tried multiple medications with no improvement. Symptoms worsening. Recommend stat IR LP for OP Ophthalmology advised to try to get same day appt. MRV to evaluate for venous stenosis Diamox 250mg BID Pt is on toradol. May not be able to have LP until off toradol. Recommend First available appt with Dr. Coronel after work up complete. Pt understood. documented in this encounter Assessments Diagnosis Chiari malformation type I (HCC)- Primary Compression of brain Benign intracranial hypertension Summary Purpose Family History No Family History Records FoundNo Family History Records FoundNo Family History Records FoundNo Family History Records Found Advance Directives Advance Directive Response Recorded Date/ Time Advance Directives No September 12 4 9:35am Hospital Course Note HNO ID: [id number] Author: Beny Hernández Service: ? Author Type: Nurse Practitioner Type: Discharge Summary Filed: 01/04/2020 3:54 PM Note Text: Attestation signed by Krystyna Caldwell at 01/07/2020 2:41 PM Krystyna Caldwell MD DISCHARGE SUMMARY PATIENT NAME: Ivette Lopes ADMISSION DATE: 12/30/2019 DISCHARGE DATE: 01/04/2020 ATTENDING PHYSICIAN: Krystyna Caldwell Code Status: Not on file Highest Readmission Risk Score: 7 The 30 day readmissions risk score is derived from an internally validated risk model which evaluates patient level characteristics, utilization history, medication orders and lab results up until the day of discharge. Patients with a score of 40 or above are considered highest risk for readmission. Specific patient level drivers will be listed at the bottom of the summary. CONSULTING TEAMS DURING HO (more content not included)... Note HNO ID: [id number] Author: Beny Martínez (Cherise) Bryn Service: Radiology Author Type: Nurse Practitioner Type: Brief Op Note Filed: 12/28/2019 3:04 PM Note Text: BRIEF OPERATIVE / PROCEDURE NOTE LOG ID: [id number] SURGERY/PROCEDURE DATE: 12/28/2019 INCISION/PROCEDURE START TIME: 2:38 PM INCISION CLOSE/PROCEDURE END TIME: 2:42 PM SURGEON(S)/PROCEDURALIST(S) AND GROWTH HACKER(S): Surgeon(s) and Role: * Renetta Martínez (Cherise) Bryn - Primary No Additional Staff SURGERY/PROCEDURE(S): Fluoroscopic guided diagnostic lumbar puncture ANESTHESIA: Local FINDINGS: L 3,4 accessed. Clear CSF confirmed placement. OP 11 cm H20. No CSF removed. ESTIMATED BLOOD LOSS: 0 ml SPECIMENS: None COMPLICATIONS: None PRE-OP/PRE-PROCEDURE DIAGNOSIS: Benign intracranial hypertension POST-OP/POST-PROCEDURE DIAGNOSIS: Same as Preop SIGNATURE: Renetta Dodge, LOSS PREVENTION DETECTIVE.CHERISE PATIENT NAME: Ivette Lopes DATE: December 28, 2019 TIME: 3:02 PM PAGER/CONTACT #: Note HNO ID: [id number] Author: Joselo Harvey Service: ? Author Type: Anesthesiologist Type: Anesthesia Procedure Notes Filed: 12/30/2019 2:34 PM Note Text: ANESTHESIOLOGY PROCEDURE NOTE Epidural Blood Patch General Information Procedure Start Time/Medication Administration: 12/30/2019 1:22 PM Procedure End time: 12/30/2019 1:35 PM Patient location during procedure: PACU Timeout Performed Pre-procedure: timeout performed Consent Obtained: Yes Patient identity confirmed: arm band, care retail sales teammate and patient Reason for Blood Patch: spinal headache Staffing Anesthesiologist: Myke Harvey Preparation Sterility Preparation: hand hygiene performed prior to procedure, surgical cap used, mask used, sterile drape used during line insertion, skin prep agent completely dried prior to procedure Site Prep: Duraprep and Chloraprep (Chloraprep for Left Arm IV and duraprep for Epidural site) Procedure Details Location of venous blood draw: arm (Left A/C) Sterile: yes Volume of blood injected: 2 (more content not included)... Note HNO ID: [id number] Author: Araceli Brennan Service: ? Author Type: Anesthesiologist Type: Anesthesia Procedure Notes Filed: 01/01/2020 5:11 PM Note Text: ANESTHESIOLOGY PROCEDURE NOTE Epidural Blood Patch General Information Procedure Start Time/Medication Administration: 01/01/2020 4:50 PM Procedure End time: 01/01/2020 5:00 PM Patient location during procedure: PACU Timeout Performed Pre-procedure: timeout performed Consent Obtained: Yes Patient identity confirmed: arm band and care retail sales teammate Reason for Blood Patch: spinal headache Staffing Anesthesiologist: Adina Brennan Preparation Sterility Preparation: hand hygiene performed prior to procedure, gown used during line insertion, surgical cap used, mask used, sterile drape used during line insertion, skin prep agent completely dried prior to procedure Site Prep: Chloraprep Procedure Details Location of venous blood draw: arm Sterile: yes Volume of blood injected: 20 mL Patient position: sitting Patient monitoring: Pulse OX, EKG and NIBP Appr (more content not included)... Procedure Findings Note HNO ID: [id number] Author: Beny Martínez (Cherise) Bryn Service: Radiology Author Type: Nurse Practitioner Type: Brief Op Note Filed: 12/28/2019 3:04 PM Note Text: BRIEF OPERATIVE / PROCEDURE NOTE LOG ID: [id number] SURGERY/PROCEDURE DATE: 12/28/2019 INCISION/PROCEDURE START TIME: 2:38 PM INCISION CLOSE/PROCEDURE END TIME: 2:42 PM SURGEON(S)/PROCEDURALIST(S) AND GROWTH HACKER(S): Surgeon(s) and Role: * Renetta Martínez (Hydration Plant Operator) Bryn - Primary No Additional Staff SURGERY/PROCEDURE(S): Fluoroscopic guided diagnostic lumbar puncture ANESTHESIA: Local FINDINGS: L 3,4 accessed. Clear CSF confirmed placement. OP 11 cm H20. No CSF removed. ESTIMATED BLOOD LOSS: 0 ml SPECIMENS: None COMPLICATIONS: None PRE-OP/PRE-PROCEDURE DIAGNOSIS: Benign intracranial hypertension POST-OP/POST-PROCEDURE DIAGNOSIS: Same as Preop SIGNATURE: Renetta Dodge APRN.CNP PATIENT NAME: Ivette Lopes DATE: December 28, 2019 TIME: 3:02 PM PAGER/CONTACT #: Note HNO ID: [id number] Author: Joselo Harvey Service: ? Author Type: Anesthesiologist Type: Anesthesia Procedure Notes Filed: 12/30/2019 2:34 PM Note Text: ANESTHESIOLOGY PROCEDURE NOTE Epidural Blood Patch General Information Procedure Start Time/Medication Administration: 12/30/2019 1:22 PM Procedure End time: 12/30/2019 1:35 PM Patient location during procedure: PACU Timeout Performed Pre-procedure: timeout performed Consent Obtained: Yes Patient identity confirmed: arm band, care retail sales teammate and patient Reason for Blood Patch: spinal headache Staffing Anesthesiologist: Myke Harvey Preparation Sterility Preparation: hand hygiene performed prior to procedure, surgical cap used, mask used, sterile drape used during line insertion, skin prep agent completely dried prior to procedure Site Prep: Duraprep and Chloraprep (Chloraprep for Left Arm IV and duraprep for Epidural site) Procedure Details Location of venous blood draw: arm (Left A/C) Sterile: yes Volume of blood injected: 2 (more content not included)... Note HNO ID: [id number] Author: Araceli Brennan Service: ? Author Type: Anesthesiologist Type: Anesthesia Procedure Notes Filed: 01/01/2020 5:11 PM Note Text: ANESTHESIOLOGY PROCEDURE NOTE Epidural Blood Patch General Information Procedure Start Time/Medication Administration: 01/01/2020 4:50 PM Procedure End time: 01/01/2020 5:00 PM Patient location during procedure: PACU Timeout Performed Pre-procedure: timeout performed Consent Obtained: Yes Patient identity confirmed: arm band and care retail sales teammate Reason for Blood Patch: spinal headache Staffing Anesthesiologist: Adina Brennan Preparation Sterility Preparation: hand hygiene performed prior to procedure, gown used during line insertion, surgical cap used, mask used, sterile drape used during line insertion, skin prep agent completely dried prior to procedure Site Prep: Chloraprep Procedure Details Location of venous blood draw: arm Sterile: yes Volume of blood injected: 20 mL Patient position: sitting Patient monitoring: Pulse OX, EKG and NIBP Appr (more content not included)... Chief Complaint and Reason for Visit Chief Complaint Cough, sore throat Reason for Visit Sore throat Additional Source Comments Source Comments (unrecognize d section and content) In the event this informatio n is protected by the Federal Confidentiality of Alcohol and Drug Abuse Patient Records regulations: The Federal rules restrict any use of the information to criminally investigate or prosecute any alcohol or drug abuse patient.[facility] Reason for Visit (unrecogniz ed section and content) Reason Comments New Patient Status Reason Specialty Diagnoses / Procedures Referre d By Contact Referred To Contact Closed Radiology Diagnoses Chiari I malformation (HCC) Procedures MRI CSF FLOW STUDY Thor Rowan, LOSS PREVENTION DETECTIVE - TECHNICAL PROFESSIONAL [facility] [address] INFORMATION SOURCE (unrecogn ized section and content) DATE CREATED AUTHOR 01/26/2020 [facility] DATE CREATED AUTHOR AUTHOR'S ORGANIZ ATION 07/14/2020 [facility] DATE CREATED AUTHOR AUTHOR'S ORGANIZ ATION 12/11/2020 [facility] DATE CREATED AUTHOR AUTHOR'S ORGANIZ ATION 10/07/2021 [facility] Care Teams (unrecognized sec tion and content) Team Status: Active Member Role Status Dates Chilango Spencer DO Primary Care Provider Active Team Status: Inactive Member Role Status Dates Chilango Spencer DO Primary Care Provider Active Start: September 13, 2023 End: September 13, 2023 Kelley Jane APRN Attending Provider Active Start: September 13, 2023 End: September 13, 2023 Goals (unrecognized section and content) Goals may be documented in a n alternate section FOR RECORDS PERTAINING TO PATIENTS WHO ARE OR HAVE BEEN ENROLLED IN A CHEMICAL DEPENDENCY/SUBSTANCEABUSE PROGRAM, SOME INFORMATION MAY BE OMITTED. This clinical summary was aggregated from multiple sources. Caution should be exercised in using it in the provision of clinical care. This summary normalizes information from multiple sources, and as a consequence, information in this document may materially change the coding, format and clinical context of patient data. In addition, data may be omitted in some cases. CLINICAL DECISIONS SHOULD BE BASED ON THE PRIMARY CLINICAL RECORDS. [facility] [employer] provides no warranty or guarantee of the accuracy or completeness of information in this document.
[2023-12-04] MEDS: CEFAZOLIN SODIUM/DEXTROSE,ISO 2 GM/50 ML PIGGYBACK IV (17:45)
[2023-12-04 18:32] VITALS: PULSE 74; O2SAT 99
--- NOTE | 2023-12-04 18:54 | ED_ITS ---
<Statement entered by Tripp Yoo MD - 12/04/23 19:00> This documentation has been reviewed and approved. Chart was sent to my inbox for administrative and group management purposes. I was the attending physicians working during the patients hospital course. The patient was seen and managed independently by the MLP. I did not personally see or evaluate this patient, nor was I involved in the patient medical decision making process or plans of care. Pt was dispositioned by the MLP with complete independence and I was not involved in planning, and am reviewing this chart at a later date, at a point where changing the pts disposition and treatment would not be possible. I was available for consultation should the MLP request during this patients ED stay. HPI HPI - General Adult General Chief complaint: Extremity Problem, Nontraumatic Stated complaint: Upper Extremity Pain Time Seen by Provider: 12/04/23 17:27 Source: patient Mode of arrival: walk-in History of Present Illness HPI narrative: 28-year-old female presents to the emergency department with complaint of infection. States onset this past Saturday to her left thumb and has been progressively worsening. Now noticing a streak going up her arm. Was evaluated by her provider today and sent in for IV antibiotics. Patient states that there was an increasing painful, swollen area around her thumb which she was able to cope and get some drainage last night. Denies any fever, chills, past medical problems. Quality:?as above Severity:?mild Timing:?as above, constant, worsening Context: Normal setting and activity? Modifying factors:?pain with palpation Associated symptoms: as above Related Data Previous Rx's ?Medication ?Instructions ?Recorded cephalexin 500 mg capsule 500 mg PO QID 10 days #40 caps 12/04/23 Allergies Allergy/AdvReac Type Severity Reaction Status Date / Time No Known Drug Allergies Allergy Verified 12/04/23 17:25 Opioid HPI Opioid Management Most Recent Opioid Data: No Data to Display Review of Systems ROS Constitutional Denies: fever, fatigue or malaise Musculoskeletal Reports: extremity pain Integumentary/Breast Reports: redness, skin tenderness and skin swelling Neurological Denies: numbness in extremities or weakness in extremities Endocrine Denies: fatigue or other (wound) Exam Constitutional Vital Signs, click to edit/add: Last Vital Signs Temp 98.8 F 12/04/23 17:22 Pulse 74 12/04/23 18:32 Resp 18 12/04/23 18:32 BP 139/90 12/04/23 17:22 Pulse Ox 99 12/04/23 18:32 O2 Del Method Room Air 12/04/23 18:32 Documenting provider has reviewed patient's vital signs: yes Common normals: no apparent distress and oriented x3 General appearance: well developed Cardio Peripheral pulses: radial pulses present left 2+ Extremity Other: Left arm: +tenderness to the cuticle with associated swelling, consistent with paronychia. No fluctuance is noted. Swelling is firm. She has lymphangitic streaking going up into the biceps region.? No tenderness to the remainder of the arm.? No ecchymosis, crepitus, deformity, instability, warmth.? ROM of the left upper extremity, hand, fingers is full.? Strength 5/5 Neuro Common normals: oriented x3, no focal motor deficits and no sensory deficits noted Psych Common normals: mental status grossly normal and thought process normal Thought process: normal thought process Course Vital Signs Vital signs: Vital Signs Temperature 98.8 F 12/04/23 17:22 Pulse Rate 90 12/04/23 17:22 Respiratory Rate 16 12/04/23 17:22 Blood Pressure 139/90 12/04/23 17:22 Pulse Oximetry 99 12/04/23 17:22 Oxygen Delivery Method Room Air 12/04/23 17:22 Temperature 98.8 F 12/04/23 17:22 Pulse Rate 74 12/04/23 18:32 Respiratory Rate 18 12/04/23 18:32 Blood Pressure 139/90 12/04/23 17:22 Pulse Oximetry 99 12/04/23 18:32 Oxygen Delivery Method Room Air 12/04/23 18:32 Medical Decision Making [facility] Narrative Medical decision making narrative: This is a pleasant 28-year-old female who presents to the emergency department with concern about infection On arrival, afebrile, vital signs are stable. Exam, nontoxic, well-appearing patient in no distress. She has paronychia to her left thumb with erythema, streaking consistent with lymphangitis going up into the biceps region. Neurovascularly intact. No motor deficits noted Favor paronychia with lymphangitis Abscess less likely based on history and physical exam Patient was given IV dose of Ancef, 2 g Disposition ? The patient was discharged. Plan: Patient will be discharged to home. Condition at time of disposition: stable Prescription for Keflex sent to her pharmacy Advised to follow up with primary provider. Advised to return for any worsening and/or development of new, concerning signs or symptoms PLEASE NOTE: Portions of the medical record may have been produced using electronic locator specialist and may contain errors with respect to translation of words which may not have been identified prior to finalization of the chart. Medical Records Medical records reviewed: Yes I reviewed the patient's medical records Discharge Plan Discharge Stand Alone Forms: Portal Instructions Chief Complaint: Extremity Problem, Nontraumatic Clinical Impression: Paronychia of left thumb, Lymphangitis Patient Disposition: Home, Self-Care Time of Disposition Decision: 18:28 Condition: Good Mode of Transportation: Private Vehicle Prescriptions / Home Meds: New cephalexin 500 mg capsule 500 mg PO QID 10 Days Qty: 40 0RF Print Language: Danish Instructions: Paronychia (ED), Lymphangitis (ED) Referrals: Aracely Slater NP [Primary Care Provider] - 1 week Discharge Date/Time: 12/04/23 18:33
== END 2023-12-04 18:33 | disposition home or self-care (01) ==
PROVIDERS: Emergency Provider Emergency Medicine; PCP Nurse Practitioner
DX: L03.022 Acute lymphangitis of left finger (principal)
CPT/HCPCS: 96365; 99284; J0690